=== PATIENT | female | born 1980 | race Caucasian/White ===

== ENCOUNTER 2023-03-25 17:21 | Observation (INO) | payer OTHER, SELFPAY ==
[2023-03-25 17:27] VITALS: BP 132/89; PULSE 120; RESP 20; TEMP 39.5; O2SAT 97; BMI 39.1
--- NOTE | 2023-03-25 17:55 | ED.ANIMALBI1 ---
HPI - Animal Bite General Chief Complaint: Animal Bite Stated Complaint: UPPER EXTREMITY PAIN Time Seen by Provider: 03/25/23 17:47 Source: patient Mode of arrival: walk-in Limitations: no limitations History of Present Illness HPI narrative: Patient is a 42-year-old female presents to the Emergency Room with concerns of infection to her right forearm. Patient states yesterday she attempted to pick pulling machine tender her normally indoor cat that was outside to bring it back in when it started to scratch her. Patient initially denied being bitten however there is multiple abrasions consistent with scratches to the distal forearm and more. Puncture wounds to the dorsal proximal forearm concerning for Bite. Patient has notable erythema surrounding these areas that is tender to palpation. No active drainage. Patient was seen by her family doctor this morning prescribed Augmentin and took her 1st dose earlier today, but her symptoms persist. Patient also developing fever. She has not taken any medication prior to arrival other than her antibiotic Patient states her tetanus is up-to-date, patient also notes that her cat is fully vaccinated, and can be observed. Animal: Reports cat Mechanism: Reports bite and scratch Location: Reports other (Right forearm) Pain description: Reports dull Severity: mild Related Data Patient tetanus UTD: Yes Home Medications Medication Instructions Recorded Confirmed albuterol sulfate 90 mcg/actuation 2 inh inhalation .FOUR TIMES A DAY 03/25/23 03/26/23 aerosol inhaler (Ventolin HFA) PRN shortness of breath or wheezing amoxicillin 875 mg-potassium 1 tab PO Q12H 03/25/23 03/26/23 clavulanate 125 mg tablet fluticasone propionate 50 2 spray intranasal .once daily PRN 03/25/23 03/26/23 mcg/actuation nasal allergy symptoms spray,suspension norethindrone acetate 5 mg tablet 10 mg PO DAILY 03/25/23 03/26/23 rimegepant 75 mg disintegrating 75 mg PO .as needed 03/25/23 03/26/23 tablet (Nurtec ODT) simvastatin 20 mg tablet 20 mg PO .AT BEDTIME 03/25/23 03/26/23 venlafaxine 37.5 mg 37.5 mg PO DAILY 03/25/23 03/26/23 capsule,extended release 24 hr Allergies Allergy/AdvReac Type Severity Reaction Status Date / Time No Known Drug Allergies Allergy Verified 06/05/23 22:55 Review of Systems ROS Constitutional Reports: fever and chills Eyes Denies: change in vision Ears, nose, mouth, and throat Denies: throat pain or neck pain Cardiovascular Denies: chest pain or palpitations Respiratory Denies: shortness of breath or cough Gastrointestinal Denies: abdominal pain, nausea or vomiting Genitourinary Denies: painful urination or urinary frequency Musculoskeletal Reports: other (General myalgias with fever); Denies: back pain Neurological Denies: headache PFSH PFSH Medical History (Updated 03/25/23 @ 23:30 by Ирина Fenton) Surgical History (Updated 03/25/23 @ 23:30 by Ирина Fenton) Family History (Updated 03/25/23 @ 23:36 by рИина Fenton) Grandfather Family history of cancer Grandmother Family history of cancer Mother Family history of diabetes mellitus Social History (Updated 03/25/23 @ 23:40 by Ирина Fenton) Smoking status: Former smoker Non-prescribed substance use: cannabis (any form) 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 Known occupational exposures/hazards: Yes Highest level of school completed/degree received: Associate degree: occupational, technical, vocational program Do you want help with school or training: No Are you now , , , , never or living with a partner: In a typical week, how many times do you talk on the telephone with family, friends, or neighbors: 3 or more times per week How often do you get together with friends or relatives: 3 or more times per week How often do you attend lutheran or muslim services: never Do you belong to any clubs or organizations such as lutheran groups unions, fraternal or athletic groups, or school groups: no Total score: 1 Score interpretation: A score of less than or equal to 1 indicates the most socially isolated. Little interest or pleasure in doing things: not at all Feeling down, depressed, or hopeless: not at all Feel stressed/tense/nervous/anxious/difficulty sleeping: not at all Life stressors: unknown source of stress Due to disability, difficulty making decisions: No Do you think of yourself as: decline to answer Gender Identity: female Exam Narrative Exam Narrative: Nurses notes and vital signs reviewed and patient is not hypoxic. General: The patient appears well and in no apparent distress. Patient is resting comfortably on cart. Skin: Warm, dry, no pallor noted. Head: Normocephalic, atraumatic Neck: Supple, trachea mid-line, no tenderness, no lymphadenopathy Eye: Pupils are equal, round and reactive to light, EOMI, conjunctiva injection patient admits to crying earlier in the day regarding the whole ordeal. Ears, Nose, Mouth, and Throat: TM are clear, normal light reflex, oral mucosa is moist, no posterior oropharynx erythema or hypertrophy, uvula is mid-line Cardiovascular: Regular Rate and Rhythm Respiratory: Patient is in no distress, no accessory muscle use, lungs are clear to auscultation, no wheezing, rales or rhonchi. Chest Wall: no tenderness Back: non-tender, no CVA tenderness Musculoskeletal: Painless passive range of motion of the wrist elbow and shoulder. No palpable lymphadenopathy in the right axilla, notable puncture wounds to the dorsal forearm and scratches to the dorsal fall or forearm all with surrounding erythema and slight streaking. No active drainage or discharge. GI: Normal bowel sounds, no tenderness to palpation, no masses appreciated. No rebound, guarding, or rigidity noted. Abdomen nonsurgical Neurological: A&O x4 Psychiatric: Cooperative Constitutional Vital Signs - 24 hr 03/25/23 17:27 03/25/23 19:14 03/25/23 19:39 Temperature 103.1 F H 101.2 F H Pulse Rate 111 H Pulse Rate [Monitor] 120 H Respiratory Rate 20 16 Blood Pressure 112/71 Blood Pressure [Left Arm] 132/89 H Pulse Oximetry 97 96 Oxygen Delivery Method Room Air Course Vital Signs Vital signs: Vital Signs Temperature 103.1 F H 03/25/23 17:27 Pulse Rate 120 H 03/25/23 17:27 Respiratory Rate 20 03/25/23 17:27 Blood Pressure 132/89 H 03/25/23 17:27 Pulse Oximetry 97 03/25/23 17:27 Oxygen Delivery Method Room Air 03/25/23 17:27 Temperature 98.9 F 03/26/23 20:53 Pulse Rate 82 03/26/23 14:00 Respiratory Rate 18 03/26/23 20:53 Blood Pressure 121/84 H 03/26/23 14:00 Pulse Oximetry 95 03/26/23 14:00 Oxygen Delivery Method Room Air 03/26/23 20:53 Two-view right forearm with no evidence of foreign body- preliminary MDM - Animal Bite MDM Narrative Medical decision making narrative: Patient's tetanus is up-to-date, we discussed her multiple suspected cat Bites to the right forearm. Patient prescribed outpatient oral antibiotics but. Presents febrile. Patient be given Tylenol, Motrin IV fluid bolus and IV Unasyn 3g We discussed the possibility observation given the extent of her wounds for further evaluation and IV antibiotic management Attending physician note - I saw and examined the patient after discussing the PA with the midlevel. The patient needs to be admitted for IV antibiotics. I spoke with the hospitalist and Dr Kovacs agreed to admit the patient on behalf of the patient's PCP, Ivy Ware. - Carmelita, DO Differential Diagnosis Differential diagnosis: Likely cat bite Lab Data Lab results narrative: At the request of: PEDRO LUIS WARNER Procedure: XR forearm RT 2V EXAM: XR forearm RT 2V HISTORY: right forearm cat bite/ scratch COMPARISON: None. TECHNIQUE: 2 views of the right forearm FINDINGS: No acute fracture of the right forearm is seen. Mild soft tissue swelling is seen about the ventral aspect of the proximal forearm. No significant soft tissue gas is seen. No radiopaque density seen within the visualized soft tissues. IMPRESSION: No acute fracture. Electronically authenticated by: CESAR LOPEZ Date: 03/25/2023 19:27 Labs: Lab Results 03/25/23 03/25/23 03/25/23 Range/Units 18:15 18:24 19:30 WBC 14.0 H (4.0-11.0) 10^3/uL RBC 4.54 (4.20-5.40) 10^6/uL Hgb 13.8 (12.0-16.0) g/dL Hct 41.4 (36.0-48.0) % MCV 91.2 (81.0-99.0) fL MCH 30.4 (26.7-34.0) pg MCHC 33.3 (29.9-35.2) g/dL RDW 13.2 (11.0-15.0) % Plt Count 363 (150-450) 10^3/uL MPV 9.2 L (9.5-13.5) fL Neut % (Auto) 80.0 H (43.0-75.0) % Lymph % (Auto) 11.4 L (20.5-60.0) % [place] % (Auto) 7.1 (1.7-12.0) % Eos % (Auto) 0.8 L (0.9-7.0) % Baso % (Auto) 0.3 (0.2-2.0) % Neut # (Auto) 11.2 H (1.4-6.5) 10^3/uL Lymph # (Auto) 1.6 (1.2-3.8) 10^3/uL [place] # (Auto) 1.0 H (0.3-0.8) 10^3/uL Eos # (Auto) 0.1 (0.0-0.7) 10^3/uL Baso # (Auto) 0.0 (0.0-0.1) 10^3/uL Abs Immat Gran (auto) 0.05 H (0.00-0.03) 10^3/uL Imm/Tot Granulo (auto) 0.4 (0.0-0.5) % Sodium 137 (136-145) mmol/L Potassium 4.0 (3.5-5.1) mmol/L Chloride 101 (98-107) mmol/L Carbon Dioxide 25.6 (21.0-32.0) mmol/L Anion Gap 14.4 BUN 6.0 L (7.0-18.0) mg/dL Creatinine 0.77 (0.55-1.02) mg/dL Est GFR ( Amer) >60 (>=60) Est GFR (Non-Af Amer) >60 (>=60) BUN/Creatinine Ratio 7.8 Glucose 94 (74-106) mg/dL Lactate 1.2 (0.4-2.0) mmol/L Calcium 9.0 (8.5-10.1) mg/dL Total Bilirubin 0.5 (0.2-1.0) mg/dL AST 33 (15-37) U/L ALT 35 (14-59) U/L Alkaline Phosphatase 45 L (46-116) U/L Total Protein 7.8 (6.4-8.2) g/dL Albumin 3.9 (3.4-5.0) g/dL Globulin 3.9 g/dL Albumin/Globulin Ratio 1.0 Urine Color Lt. yellow (YELLOW) Urine Clarity Clear (CLEAR) Urine pH 7.5 (5.0-9.0) Ur Specific [place] 1.010 (1.005-1.025) Urine Protein Negative (NEG/TRACE) mg/dL Urine Glucose (UA) Negative (NEGATIVE) mg/dL Urine Ketones Negative (NEGATIVE) mg/dL Urine Occult Blood Moderate A (NEGATIVE) Urine Nitrite Negative (NEGATIVE) Urine Bilirubin Negative (NEGATIVE) Urine Urobilinogen 0.2 (0.2-1.0) EU/dL Ur Leukocyte Esterase Negative (NEGATIVE) Urine RBC 0-2 (0-2) #/HPF Urine WBC None seen (NONE SEEN) #/HPF Ur Squamous Epith Cells None seen (NONE/RARE) #/LPF Urine Crystals None seen (None Seen) #/HPF Urine Bacteria None seen (NONE SEEN) #/HPF Urine Casts None seen (NONE SEEN) #/LPF Urine Mucus None seen (NONE SEEN) Urine HCG, Qual Negative (NEGATIVE) Discharge Plan Discharge Chief Complaint: Animal Bite Clinical Impression: Cat bite, Cellulitis of forearm, right Patient Disposition: Admitted as Observation Time of Disposition Decision: 19:39 Condition: Good Discharge Date/Time: 03/25/23 22:12
[2023-03-25] MEDS: 0.9 % SODIUM CHLORIDE 1,000 ML 999 ML IV (18:23)
[2023-03-25] MEDS: IBUPROFEN 600 MG TABLET PO (18:23)
[2023-03-25] MEDS: ACETAMINOPHEN 500 MG TABLET 1000 MG PO (18:23)
[2023-03-25] MEDS: AMPICILLIN SODIUM/SULBACTAM NA 3 GM in 0.9 % SODIUM CHLORIDE 100 ML IV (18:25)
--- NOTE | 2023-03-25 18:28 | XR_ITS ---
The [address] [address] Patient Name: SABRINA MARIN MRN: [id number] date: 1980 Sex: F Assigned Patient Location: ER Current Patient Location: ER Accession/Order Number: [id number] Exam Date: 03/25/2023 18:30 Report Date: 03/25/2023 19:27 At the request of: PEDRO LUIS WARNER Procedure: XR forearm RT 2V EXAM: XR forearm RT 2V HISTORY: right forearm cat bite/ scratch COMPARISON: None. TECHNIQUE: 2 views of the right forearm FINDINGS: No acute fracture of the right forearm is seen. Mild soft tissue swelling is seen about the ventral aspect of the proximal forearm. No significant soft tissue gas is seen. No radiopaque density seen within the visualized soft tissues. IMPRESSION: No acute fracture. Electronically authenticated by: CESAR LOPEZ Date: 03/25/2023 19:27
[2023-03-25 18:34] LABS: Basophils Percent Auto 0.3 % (0.2-2.0); Eosinophils Absolute Auto 0.1 10^3/uL (0.0-0.7); Eosinophils Percent Auto 0.8 % (0.9-7.0); Hematocrit 41.4 % (36.0-48.0); Hemoglobin 13.8 g/dL (12.0-16.0); Immature Granulocytes Abs Auto 0.05 10^3/uL (0.00-0.03); Immature Granulocytes Pct Auto 0.4 % (0.0-0.5); Lymphocytes Absolute Auto 1.6 10^3/uL (1.2-3.8); Lymphocytes Percent Auto 11.4 % (20.5-60.0); Mean Corpuscular HGB Conc 33.3 g/dL (29.9-35.2); Mean Corpuscular Hemoglobin 30.4 pg (26.7-34.0); Mean Corpuscular Volume 91.2 fL (81.0-99.0); Mean Platelet Volume 9.2 fL (9.5-13.5); Monocytes Percent Auto 7.1 % (1.7-12.0); Neutrophils Absolute Auto 11.2 10^3/uL (1.4-6.5); Platelet Count 363 10^3/uL (150-450); Red Blood Count 4.54 10^6/uL (4.20-5.40); Red Cell Distribution Width 13.2 % (11.0-15.0)
[2023-03-25 18:47] LABS: Alanine Aminotransferase 35 U/L (14-59); Albumin Level 3.9 g/dL (3.4-5.0); Alkaline Phosphatase 45 U/L (46-116); Anion Gap 14.4; Aspartate Amino Transferase 33 U/L (15-37); BUN Creatinine Ratio 7.8; Bilirubin Total 0.5 mg/dL (0.2-1.0); Carbon Dioxide 25.6 mmol/L (21.0-32.0); Chloride 101 mmol/L (98-107); Estimated GFR (African America >60 (>=60); Estimated GFR (Non-African Ame >60 (>=60); Globulin 3.9 g/dL; Glucose 94 mg/dL (74-106); Sodium 137 mmol/L (136-145); Total Protein 7.8 g/dL (6.4-8.2)
[2023-03-25 18:49] LABS: Lactate/Lactic Acid 1.2 mmol/L (0.4-2.0)
[2023-03-25 18:51] LABS: HCG Qualitative NEGATIVE (NEGATIVE)
[2023-03-25 19:14] VITALS: TEMP 38.4
--- NOTE | 2023-03-25 19:18 | PC.NURSE ---
Reddened area marked with skin marker at this time
[2023-03-25 19:36] LABS: Bilirubin Urine NEGATIVE (NEGATIVE); Blood Urine MODERATE (NEGATIVE); Clarity Urine CLEAR (CLEAR); Color Urine LT. YELLOW (YELLOW); Glucose Urine UA NEGATIVE (NEGATIVE); Ketones Urine NEGATIVE (NEGATIVE); Leukocyte Esterase Urine NEGATIVE (NEGATIVE); Nitrite Urine NEGATIVE (NEGATIVE); Protein Urine NEGATIVE (NEG/TRACE); Urobilinogen Urine 0.2 EU/dL (0.2-1.0); pH Urine 7.5 (5.0-9.0)
[2023-03-25 19:39] VITALS: BP 112/71; PULSE 111; RESP 16; O2SAT 96
[2023-03-25 19:39] LABS: Bacteria Urine NONE SEEN #/HPF (NONE SEEN); Cast Seen? NONE SEEN #/LPF (NONE SEEN); Crystals Seen? None Seen #/HPF (None Seen); Mucus Urine NONE SEEN (NONE SEEN); RBC Urine 0-2 #/HPF (0-2); Squamous Epithelial Cell Urine NONE SEEN #/LPF (NONE/RARE); WBC Urine NONE SEEN #/HPF (NONE SEEN)
[2023-03-25 22:12] VITALS: TEMP 36.8
[2023-03-25 22:14] VITALS: TEMP 36.8
[2023-03-25 22:20] VITALS: BP 113/80; PULSE 102; RESP 18; TEMP 36.7; O2SAT 95; BMI 40.0
--- NOTE | 2023-03-26 01:07 | W.PM.TELEPN ---
Progress Note: Subjective Subjective Interval history: Patient admitted for cat scratch to right (dominant) wrist as well as scratches with punctures to right forearm. onset 03/24. seen by PCP DAIANA MCALLISTER morning of the and started single dose of augmentin however in the evening became febrile prompting ED visit. Found to have fever with leukocytosis thus admitted for IV ABX. At my interview she has mild headache but otherwise feeling better following ED tx that included fever control plus abx. Exam Constitutional Vital Signs - 24 hr 03/25/23 17:27 03/25/23 19:14 03/25/23 19:39 Temperature 103.1 F H 101.2 F H Pulse Rate 111 H Pulse Rate [Monitor] 120 H Respiratory Rate 20 16 Blood Pressure 112/71 Blood Pressure [Left Arm] 132/89 H Pulse Oximetry 97 96 Oxygen Delivery Method Room Air 03/25/23 22:12 03/25/23 22:14 03/25/23 22:20 Temperature 98.3 F 98.3 F 98.1 F Pulse Rate 102 H Pulse Rate [Monitor] Respiratory Rate 18 Blood Pressure Blood Pressure [Left Arm] 113/80 H Pulse Oximetry 95 Oxygen Delivery Method Room Air 03/25/23 22:20 Temperature Pulse Rate Pulse Rate [Monitor] Respiratory Rate Blood Pressure Blood Pressure [Left Arm] Pulse Oximetry 95 Oxygen Delivery Method Room Air Common normals: no apparent distress General appearance: cooperative and comfortable Orientation/consciousness: Yes awake, Yes oriented to person, Yes oriented to place and Yes oriented to time HENNC Common normals: normocephalic and head/scalp atraumatic Eye Common normals: conjunctivae normal Chest Common normals: inspection of chest normal Respiratory Common normals: normal respiratory effort Cardio Common normals: regular rhythm Rate: tachycardic Extremity Other: superficial scratches to volar right wrist. Proximal forarm on dorsolateral aspect with punctures and scrates with lines of demarcation drawn around erythema that extends to the elbow joint. distal PMS intact. cap refull RUE < 2 seconds. Neuro Common normals: oriented x3 Progress Note: Objective Labs Labs: Short CBC 03/25/23 Range/Units 18:15 WBC 14.0 H (4.0-11.0) 10^3/uL Hgb 13.8 (12.0-16.0) g/dL Hct 41.4 (36.0-48.0) % Plt Count 363 (150-450) 10^3/uL BMP 03/25/23 18:24 Sodium 137 Potassium 4.0 Chloride 101 Carbon Dioxide 25.6 BUN 6.0 L Creatinine 0.77 Glucose 94 Calcium 9.0 Liver Function 03/25/23 Range/Units 18:24 Total Bilirubin 0.5 (0.2-1.0) mg/dL AST 33 (15-37) U/L ALT 35 (14-59) U/L Alkaline Phosphatase 45 L (46-116) U/L Albumin 3.9 (3.4-5.0) g/dL Urine 03/25/23 Range/Units 19:30 Urine Color Lt. yellow (YELLOW) Urine Clarity Clear (CLEAR) Urine pH 7.5 (5.0-9.0) Ur Specific [place] 1.010 (1.005-1.025) Urine Protein Negative (NEG/TRACE) mg/dL Urine Glucose (UA) Negative (NEGATIVE) mg/dL Pulse Oximetry Attestation: I have reviewed the pertinent pulse oximetry results. Progress Note: A&P Assessment and Plan (1) Cellulitis of forearm, right: (2) Cat bite: Plan 1. Cat bite and scratch: Continue q 6 hr abx with Unasyn. Antipyretics as needed. Follow wounds for improvement however with punctures will follow and if worsen after 24 hours abx consider surgical eval. sooner if clinically indicated. Tetanus was updated and this is her cat. Do not suspect sepsis and is tolerating po/diet. 2.HLD. Pharm to restart home meds. 3. DVT prophylaxis. MEchanical compression device Fall Risk Details Pitts Fall Scale Risk Level: Moderate Fall Risk Current Medications: Current Medications Acetaminophen (Acetaminophen 325 Mg Tablet) 650 mg PO Q4H PRN PRN Reason: Pain Docusate Sodium (Docusate Sodium 100 Mg Capsule) 100 mg PO BID PRN PRN Reason: Constipation Ampicillin Sodium/Sulbactam (Sodium 3 gm/ Sodium Chloride) 100 mls @ 200 mls/hr IV Q6H LANCE Ibuprofen (Ibuprofen 400 Mg Tablet) 400 mg PO Q8H PRN PRN Reason: Mild Pain Oxycodone/Acetaminophen (Oxycodone Hcl/Acetaminophen 5-325 Mg Tablet) 1 each PO Q6H PRN PRN Reason: Moderate Pain Polyethylene Glycol (Polyethylene Glycol 3350 17 Gm Powder Packet) 17 gm PO QD PRN PRN Reason: Constipation Senna (Sennosides 8.6 Mg Tablet) 8.6 mg PO QD PRN PRN Reason: Constipation Time Spent With Patient Time: Total time spent is greater than 50% in coordination of care (as documented) at patient's floor/unit and/or counseling patient: Time with patient: less than 15 minutes Telemedicine Attestation Telemedicine Attestation I conducted this encounter from [[facility]] via secure live, [id number] video conference with the patient, CHARGE TEST-CHARGES located at [facility] with [Tanika Fenton]. Prior to the interview, the risks and benefits of telemedicine were discussed with the patient and verbal consent was obtained.
[2023-03-26] MEDS: AMPICILLIN SODIUM/SULBACTAM NA 3 GM in 0.9 % SODIUM CHLORIDE 100 ML IV ×4 (01:19→20:18)
[2023-03-26 05:22] LABS: Basophils Percent Auto 0.2 % (0.2-2.0); Eosinophils Absolute Auto 0.3 10^3/uL (0.0-0.7); Eosinophils Percent Auto 2.2 % (0.9-7.0); Hemoglobin 12.3 g/dL (12.0-16.0); Immature Granulocytes Abs Auto 0.05 10^3/uL (0.00-0.03); Immature Granulocytes Pct Auto 0.4 % (0.0-0.5); Lymphocytes Absolute Auto 1.8 10^3/uL (1.2-3.8); Lymphocytes Percent Auto 15.7 % (20.5-60.0); Mean Corpuscular HGB Conc 32.4 g/dL (29.9-35.2); Mean Corpuscular Volume 92.7 fL (81.0-99.0); Mean Platelet Volume 9.3 fL (9.5-13.5); Monocytes Absolute Auto 1.1 10^3/uL (0.3-0.8); Neutrophils Absolute Auto 8.5 10^3/uL (1.4-6.5); Neutrophils Percent Auto 72.5 % (43.0-75.0); Platelet Count 290 10^3/uL (150-450); Red Cell Distribution Width 13.3 % (11.0-15.0); White Blood Count 11.7 10^3/uL (4.0-11.0)
[2023-03-26 05:37] LABS: Alanine Aminotransferase 29 U/L (14-59); Albumin Globulin Ratio 0.9; Albumin Level 3.1 g/dL (3.4-5.0); Alkaline Phosphatase 39 U/L (46-116); Aspartate Amino Transferase 20 U/L (15-37); BUN Creatinine Ratio 9.2; Bilirubin Total 0.5 mg/dL (0.2-1.0); Calcium 8.7 mg/dL (8.5-10.1); Carbon Dioxide 23.7 mmol/L (21.0-32.0); Chloride 107 mmol/L (98-107); Estimated GFR (African America >60 (>=60); Estimated GFR (Non-African Ame >60 (>=60); Globulin 3.5 g/dL; Glucose 116 mg/dL (74-106); Potassium 3.7 mmol/L (3.5-5.1); Sodium 140 mmol/L (136-145); Total Protein 6.6 g/dL (6.4-8.2)
[2023-03-26 06:00] VITALS: BP 106/73; PULSE 84; RESP 18; TEMP 37.2; O2SAT 93
[2023-03-26 07:12] LABS: Erythrocyte Sedimentation Rate 34 mm/hr (<=20)
[2023-03-26 07:14] LABS: Lactate/Lactic Acid 0.7 mmol/L (0.4-2.0)
--- NOTE | 2023-03-26 09:16 | PM.HP ---
H&P: HPI History of Present Illness Chief complaint: UPPER EXTREMITY PAIN Narrative: Scratch 2 days ago. Saw her PCP. Started on Augmentin. Over the course the next day the swelling and erythema became worse and the pain increased. Presented to the emergency room. Found to have significant cat scratch cellulitis. X-ray shows no evidence of bony involvement. 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 Known occupational exposures/hazards: Yes Highest level of school completed/degree received: Associate degree: occupational, technical, vocational program Do you want help with school or training: No Are you now , , , , never or living with a partner: In a typical week, how many times do you talk on the telephone with family, friends, or neighbors: 3 or more times per week How often do you get together with friends or relatives: 3 or more times per week How often do you attend adventism or sikhism services: never Do you belong to any clubs or organizations such as adventism groups unions, fraternal or athletic groups, or school groups: no Total score: 1 Score interpretation: A score of less than or equal to 1 indicates the most socially isolated. Little interest or pleasure in doing things: not at all Feeling down, depressed, or hopeless: not at all Feel stressed/tense/nervous/anxious/difficulty sleeping: not at all Life stressors: unknown source of stress Due to disability, difficulty making decisions: No Do you think of yourself as: decline to answer Gender Identity: female Meds Home Medications and Allergies Home Medications Medication Instructions Recorded Confirmed Type albuterol sulfate 90 mcg/actuation 2 inh inhalation .FOUR TIMES A DAY 03/25/23 03/26/23 History aerosol inhaler (Ventolin HFA) PRN shortness of breath or wheezing amoxicillin 875 mg-potassium 1 tab PO Q12H 03/25/23 03/26/23 History clavulanate 125 mg tablet fluticasone propionate 50 2 spray intranasal .once daily PRN 03/25/23 03/26/23 History mcg/actuation nasal allergy symptoms spray,suspension norethindrone acetate 5 mg tablet 10 mg PO DAILY 03/25/23 03/26/23 History rimegepant 75 mg disintegrating 75 mg PO .as needed 03/25/23 03/26/23 History tablet (Nurtec ODT) simvastatin 20 mg tablet 20 mg PO .AT BEDTIME 03/25/23 03/26/23 History venlafaxine 37.5 mg 37.5 mg PO DAILY 03/25/23 03/26/23 History capsule,extended release 24 hr Allergies Allergy/AdvReac Type Severity Reaction Status Date / Time No Known Drug Allergies Allergy Verified 03/25/23 22:55 Exam Constitutional Vital Signs - 24 hr 03/25/23 17:27 03/25/23 19:14 03/25/23 19:39 Temperature 103.1 F H 101.2 F H Pulse Rate 111 H Pulse Rate [Monitor] 120 H Respiratory Rate 20 16 Blood Pressure 112/71 Blood Pressure [Left Arm] 132/89 H Pulse Oximetry 97 96 Oxygen Delivery Method Room Air 03/25/23 22:12 03/25/23 22:14 03/25/23 22:20 Temperature 98.3 F 98.3 F 98.1 F Pulse Rate 102 H Pulse Rate [Monitor] Respiratory Rate 18 Blood Pressure Blood Pressure [Left Arm] 113/80 H Pulse Oximetry 95 Oxygen Delivery Method Room Air 03/25/23 22:20 03/26/23 06:00 Temperature 98.9 F Pulse Rate 84 Pulse Rate [Monitor] Respiratory Rate 18 Blood Pressure Blood Pressure [Left Arm] 106/73 Pulse Oximetry 95 93 L Oxygen Delivery Method Room Air [facility] Common normals: moist oral mucous membranes Respiratory Common normals: normal respiratory effort, no retractions and clear to auscultation bilaterally Cardio Common normals: no JVD, regular rate and regular rhythm GI Common normals: Normal to inspection, nondistended, normoactive bowel sounds present Extremity Common normals: abnormal to inspection (Right arm near the elbow with area of erythema. Just at the edge ) Results Labs Labs: Short CBC 03/25/23 03/26/23 Range/Units 18:15 04:51 WBC 14.0 H 11.7 H (4.0-11.0) 10^3/uL Hgb 13.8 12.3 (12.0-16.0) g/dL Hct 41.4 38.0 (36.0-48.0) % Plt Count 363 290 (150-450) 10^3/uL BMP 03/25/23 03/26/23 18:24 04:51 Sodium 137 140 Potassium 4.0 3.7 Chloride 101 107 Carbon Dioxide 25.6 23.7 BUN 6.0 L 7.0 Creatinine 0.77 0.76 Glucose 94 116 H Calcium 9.0 8.7 Liver Function 03/25/23 03/26/23 Range/Units 18:24 04:51 Total Bilirubin 0.5 0.5 (0.2-1.0) mg/dL AST 33 20 (15-37) U/L ALT 35 29 (14-59) U/L Alkaline Phosphatase 45 L 39 L (46-116) U/L Albumin 3.9 3.1 L (3.4-5.0) g/dL Urine 03/25/23 Range/Units 19:30 Urine Color Lt. yellow (YELLOW) Urine Clarity Clear (CLEAR) Urine pH 7.5 (5.0-9.0) Ur Specific [place] 1.010 (1.005-1.025) Urine Protein Negative (NEG/TRACE) mg/dL Urine Glucose (UA) Negative (NEGATIVE) mg/dL Assessment and Plan Assessment and Plan (1) Cellulitis of forearm, right: (2) Cat bite: Plan Fever, sinus tachycardia, leukocytosis secondary to cat scratch cellulitis. Continue with Unasyn. Patient does state he feels somewhat better than previous admission time. If much improved later on today she can be discharged home in improving condition. Medications see list. Follow-up with PCP within the next few days. If not feeling better she should stay for additional IV therapy as she has failed oral therapy at this point.
[2023-03-26] MEDS: IBUPROFEN 400 MG TABLET PO ×2 (09:52→20:21)
[2023-03-26 10:20] VITALS: RESP 18
--- NOTE | 2023-03-26 10:42 | CM.NOTE ---
Rounds made with Dr. Amezcua. Dr. Amezcua explained the antibiotic therapy and the goal is to decrease the redness and size of the area. Verbalizes understanding. Potential discharge later today depending on if any improvement is noted otherwise the plan for discharge will be tomorrow.
[2023-03-26 10:49] VITALS: BP 106/66; PULSE 90; RESP 16; TEMP 37.3; O2SAT 96
[2023-03-26 14:00] VITALS: BP 121/84; PULSE 82; RESP 16; TEMP 37; O2SAT 95
[2023-03-26 20:53] VITALS: RESP 18; TEMP 37.2
--- NOTE | 2023-03-27 16:20 | CM.DCFOLLOWU ---
Person spoke with:patient How are you feeling? well How is your pain? N/A Did you understand your discharge instructions? Yes Do you have any questions about your discharge instructions? No Were you given any prescriptions at discharge? NO Were you able to get your prescriptions filled? N/A Do you understand how to take your medications as ordered? Yes Do you have any questions about your follow up appointment and do you plan to keep your follow up appointment? Called and scheduled her own follow up appointment Is there anything else that you would like to discuss? NO Questions/Comments/Concerns/Other: Expressed that the ER and the hospital was dirty.
== END 2023-03-26 21:33 | disposition home or self-care (01) ==
LOC: ER 20:19 → MS 22:17
PROVIDERS: Personal Emergency Response Attendant; Admitting Provider Family Medicine; Emergency Provider Emergency Medicine; PCP Nurse Practitioner Family; Visit Provider Family Medicine
DX: L03.113 Cellulitis of right upper limb (principal); S51.831A Puncture wound without foreign body of right forearm, initial encounter; Z87.891 Personal history of nicotine dependence; W55.01XA Bitten by cat, initial encounter; R50.9 Fever, unspecified; S60.811A Abrasion of right wrist, initial encounter; E78.5 Hyperlipidemia, unspecified
CPT/HCPCS: 36415; 73090; 80053; 81001; 83605; 84703; 85025; 85652; 87040; 96374; 96376; 99285; G0378

== ENCOUNTER 2023-04-18 13:24 | Outpatient (OUT) | payer OTHER, SELFPAY ==
--- NOTE | 2023-04-18 13:28 | MM_ITS ---
Patient: SABRINA MARIN Exam Date: 04/18/2023 : 1980 Gender:F Ordering : VIVEK MCALLISTER [facility] Admission #: [id number] Family : Order #: [id number] CLICK HERE TO VIEW EXAM RADIOLOGY REPORT PROCEDURE: MM TOMOSYNTHESIS SCREENING BI COMPARISON: MG MAMM SCREEN 3D MARY CAD, 06/21/2021. MG MAMM DX 3D RT CAD, 02/05/2022. INDICATIONS: Screening mammogram Z12.31 Calculator Name NCI Breast Cancer Risk Assessment Tool 5 Year Breast Cancer Risk Not Reported. Lifetime Breast Cancer Risk Not Reported. Personal Breast Cancer No Personal Ovarian Cancer No Treatments None Family Cancers None LOCATION: The [facility] BREAST COMPOSITION: Heterogeneously dense,which may obscure small masses. FINDINGS: DIAGNOSTIC CATEGORY 1--NEGATIVE. NO CHANGE FROM COMPARISON ASSESSMENT. Scattered benign-appearing calcifications are present. Scattered benign-appearing lymph nodes are present. RIGHT BREAST: No significant suspicious finding. LEFT BREAST: No significant suspicious finding. RECOMMENDATIONS: ROUTINE MAMMOGRAM AND CLINICAL EVALUATION IN 12 MONTHS. PLEASE NOTE: A NORMAL MAMMOGRAM DOES NOT EXCLUDE THE POSSIBILITY OF BREAST CANCER. A CLINICALLY SUSPICIOUS PALPABLE LUMP SHOULD BE BIOPSIED. Dictated by: David Bonds MD on 04/18/2023 at 14:36 Approved by: David Bonds MD on 04/18/2023 at 14:38
== END 2023-04-18 13:25 | disposition home or self-care (01) ==
LOC: MAMMO 13:25
PROVIDERS: PCP Nurse Practitioner Family; Visit Provider Nurse Practitioner Family
DX: Z12.31 Encounter for screening mammogram for malignant neoplasm of breast (principal)
CPT/HCPCS: 77063; 77067

== ENCOUNTER 2023-05-25 06:30 | Outpatient (OUT) | payer BC, OTHER, SELFPAY ==
[2023-05-25 09:23] LABS: Basophils Absolute Auto 0.1 10^3/uL (0.0-0.1); Basophils Percent Auto 0.7 % (0.2-2.0); Eosinophils Absolute Auto 0.2 10^3/uL (0.0-0.7); Eosinophils Percent Auto 2.7 % (0.9-7.0); Hematocrit 44.3 % (36.0-48.0); Hemoglobin 14.5 g/dL (12.0-16.0); Immature Granulocytes Abs Auto 0.02 10^3/uL (0.00-0.03); Immature Granulocytes Pct Auto 0.2 % (0.0-0.5); Lymphocytes Absolute Auto 2.4 10^3/uL (1.2-3.8); Lymphocytes Percent Auto 29.1 % (20.5-60.0); Mean Corpuscular HGB Conc 32.7 g/dL (29.9-35.2); Mean Corpuscular Volume 91.5 fL (81.0-99.0); Monocytes Absolute Auto 0.5 10^3/uL (0.3-0.8); Monocytes Percent Auto 6.2 % (1.7-12.0); Neutrophils Absolute Auto 5.1 10^3/uL (1.4-6.5); Neutrophils Percent Auto 61.1 % (43.0-75.0); Platelet Count 346 10^3/uL (150-450); Red Blood Count 4.84 10^6/uL (4.20-5.40); White Blood Count 8.3 10^3/uL (4.0-11.0)
[2023-05-25 09:49] LABS: Free Thyroxine Index 2.31 (1.30-4.50)
[2023-05-25 09:50] LABS: Estimated Average Glucose 103 mg/dL; Glycohemoglobin A1C 5.2 % (4.5-6.2)
[2023-05-25 10:41] LABS: Alanine Aminotransferase 32 U/L (14-59); Albumin Globulin Ratio 1.1; Alkaline Phosphatase 42 U/L (46-116); Anion Gap 10.5; Aspartate Amino Transferase 13 U/L (15-37); BUN Creatinine Ratio 15.1; Bilirubin Total 0.4 mg/dL (0.2-1.0); Carbon Dioxide 24.5 mmol/L (21.0-32.0); Chloride 104 mmol/L (98-107); Cholesterol 222 mg/dL (<=200); Estimated GFR (African America >60 (>=60); Estimated GFR (Non-African Ame >60 (>=60); Globulin 3.7 g/dL; Glucose 95 mg/dL (74-106); HDL Cholesterol 37 mg/dL (40-60); Sodium 135 mmol/L (136-145); Thyroid Stimulating Hormone 1.531 uIU/mL (0.358-3.740); Total Protein 7.7 g/dL (6.4-8.2); Triglycerides 96 mg/dL (<=150); VLDL CHOLESTEROL 19.2 mg/dL
[2023-05-27 13:07] LABS: Insulin 16.1 uIU/mL (2.6-24.9)
== END 2023-06-01 07:54 | disposition home or self-care (01) ==
LOC: LAB 06-03 13:56
PROVIDERS: PCP Nurse Practitioner Family; Visit Provider Nurse Practitioner Family
DX: E78.5 Hyperlipidemia, unspecified (principal); R73.09 Other abnormal glucose; D64.9 Anemia, unspecified
CPT/HCPCS: 36415; 80053; 80061; 83036; 83525; 83540; 84436; 84443; 84479; 85025

== ENCOUNTER 2023-06-01 07:56 | Outpatient (OUT) | payer BC, OTHER, SELFPAY ==
[2023-06-01 09:49] LABS: Bilirubin Urine NEGATIVE (NEGATIVE); Blood Urine TRACE-I (NEGATIVE); Clarity Urine CLEAR (CLEAR); Color Urine LT. YELLOW (YELLOW); Glucose Urine UA NEGATIVE (NEGATIVE); Ketones Urine NEGATIVE (NEGATIVE); Leukocyte Esterase Urine NEGATIVE (NEGATIVE); Nitrite Urine NEGATIVE (NEGATIVE); Protein Urine NEGATIVE (NEG/TRACE); Urobilinogen Urine 0.2 EU/dL (0.2-1.0); pH Urine 6.5 (5.0-9.0)
== END 2023-06-01 07:57 | disposition home or self-care (01) ==
PROVIDERS: PCP Nurse Practitioner Family; Visit Provider Nurse Practitioner Family
DX: R31.9 Hematuria, unspecified (principal); D64.9 Anemia, unspecified; R73.09 Other abnormal glucose; E78.5 Hyperlipidemia, unspecified
CPT/HCPCS: 81003; 87086

== ENCOUNTER 2023-06-13 11:41 | Outpatient (OUT) | payer BC, OTHER, SELFPAY ==
--- NOTE | 2023-06-13 11:47 | XR_ITS ---
The [address] [address] Patient Name: SABRINA MARIN MRN: [id number] date: 1980 Sex: F Assigned Patient Location: RAD Current Patient Location: [facility] Accession/Order Number: [id number] Exam Date: 06/13/2023 11:50 Report Date: 06/13/2023 12:44 At the request of: VIVEK MCALLISTER Procedure: XR abdomen 1V EXAMINATION: XR abdomen 1V HISTORY: Microscopic Hematuria R31.29 COMPARISON: No relevant comparison available. FINDINGS: KIDNEY/URETER - RIGHT: No visible renal or ureteral calcifications. KIDNEY/URETER - LEFT: No visible renal or ureteral calcifications. PELVIS: No visible ureteral stones. BOWEL: No abnormal dilation or deviation. BONES: No acute abnormality. OTHER: Negative. No abnormal gaseous collections. XR/XR abdomen 1V IMPRESSION: 1. No appreciable urinary tract stones. 2. Normal bowel gas pattern. Electronically authenticated by: CAROL FRIAS Date: 06/13/2023 12:44
== END 2023-06-13 11:42 | disposition home or self-care (01) ==
LOC: RAD 11:41
PROVIDERS: PCP Nurse Practitioner Family; Visit Provider Nurse Practitioner Family
DX: R31.29 Other microscopic hematuria (principal)
CPT/HCPCS: 74018

== ENCOUNTER 2023-08-03 11:45 | Outpatient (OUT) | payer BC, OTHER, SELFPAY ==
[2023-08-03 13:43] LABS: Bilirubin Urine NEGATIVE (NEGATIVE); Blood Urine TRACE-I (NEGATIVE); Clarity Urine CLEAR (CLEAR); Color Urine YELLOW (YELLOW); Glucose Urine UA NEGATIVE (NEGATIVE); Ketones Urine NEGATIVE (NEGATIVE); Leukocyte Esterase Urine NEGATIVE (NEGATIVE); Nitrite Urine NEGATIVE (NEGATIVE); Protein Urine NEGATIVE (NEG/TRACE); Urobilinogen Urine 0.2 EU/dL (0.2-1.0)
[2023-08-03 13:44] LABS: Urine Microscopic Indicated YES
[2023-08-03 14:14] LABS: Bacteria Urine MODERATE #/HPF (NONE SEEN); Cast Seen? NONE SEEN #/LPF (NONE SEEN); Crystals Seen? None Seen #/HPF (None Seen); Mucus Urine TRACE (NONE SEEN); Squamous Epithelial Cell Urine FEW #/LPF (NONE/RARE); Urine Culture Indicated YES
== END 2023-08-03 11:46 | disposition home or self-care (01) ==
LOC: LAB 11:46
PROVIDERS: PCP Nurse Practitioner Family; Visit Provider Nurse Practitioner Family
DX: R31.9 Hematuria, unspecified (principal)
CPT/HCPCS: 81001; 87086

== ENCOUNTER 2024-06-20 09:33 | Outpatient (OUT) | payer OTHER, SELFPAY ==
[2024-06-20 10:07] LABS: Alanine Aminotransferase 36 U/L (14-59); Albumin Globulin Ratio 1.1; Albumin Level 3.7 g/dL (3.4-5.0); Alkaline Phosphatase 42 U/L (46-116); Anion Gap 12.8; Aspartate Amino Transferase 16 U/L (15-37); BUN Creatinine Ratio 9.8; Bilirubin Total 0.4 mg/dL (0.2-1.0); Calcium 9.1 mg/dL (8.5-10.1); Carbon Dioxide 25.5 mmol/L (21.0-32.0); Chloride 105 mmol/L (98-107); Chol HDL Ratio 4.5; Cholesterol 165 mg/dL (<=200); Estimated GFR (African America >60 (>=60); Estimated GFR (Non-African Ame >60 (>=60); Globulin 3.4 g/dL; Glucose 85 mg/dL (74-106); HDL Cholesterol 37 mg/dL (40-60); Potassium 4.3 mmol/L (3.5-5.1); Sodium 139 mmol/L (136-145); Total Protein 7.1 g/dL (6.4-8.2); Triglycerides 120 mg/dL (<=150)
== END 2024-06-20 09:34 | disposition home or self-care (01) ==
LOC: LAB 09:33
PROVIDERS: PCP Nurse Practitioner Family; Visit Provider Nurse Practitioner Family
DX: Z00.00 Encounter for general adult medical examination without abnormal findings (principal)
CPT/HCPCS: 36415; 80053; 80061

== ENCOUNTER 2024-06-23 16:56 | Outpatient (OUT) | payer OTHER, SELFPAY ==
--- NOTE | 2024-06-23 16:59 | MM_ITS ---
Patient Name: SABRINA MARIN MR#: [id number] : 1980 Exam Date: 06/23/2024 Ordering Doctor: Debra Fitch NP RADIOLOGY REPORT PROCEDURE: MM TOMOSYNTHESIS SCREENING BI COMPARISON: MM TOMOSYNTHESIS SCREENING BI, 04/18/2023. MG MAMM DX 3D RT CAD, 02/05/2022. MG MAMM SCREEN 3D MARY CAD, 06/21/2021. INDICATIONS: Screening for malignant neoplasm Calculator Name NCI Breast Cancer Risk Assessment Tool 5 Year Breast Cancer Risk Not Reported. Lifetime Breast Cancer Risk Not Reported. Personal Breast Cancer No Personal Ovarian Cancer No Treatments None Family Cancers None LOCATION: [facility] BREAST COMPOSITION: The breasts are heterogeneously dense,which may obscure small masses. FINDINGS: DIAGNOSTIC CATEGORY 1--NEGATIVE. NO CHANGE FROM COMPARISON ASSESSMENT. RIGHT BREAST: No significant suspicious finding. No significant change has occurred. LEFT BREAST: No significant suspicious finding. No significant change has occurred. RECOMMENDATIONS: ROUTINE MAMMOGRAM AND CLINICAL EVALUATION IN 12 MONTHS. PLEASE NOTE: A NORMAL MAMMOGRAM DOES NOT EXCLUDE THE POSSIBILITY OF BREAST CANCER. A CLINICALLY SUSPICIOUS PALPABLE LUMP SHOULD BE BIOPSIED. Dictated by: Igor Blount M.D. on 06/26/2024 at 09:04 Approved by: Igor Blount M.D. on 06/26/2024 at 09:08
== END 2024-06-23 16:57 | disposition home or self-care (01) ==
LOC: MAMMO 16:56
PROVIDERS: PCP Nurse Practitioner Family; Visit Provider Nurse Practitioner Family
DX: Z12.31 Encounter for screening mammogram for malignant neoplasm of breast (principal)
CPT/HCPCS: 77063; 77067

== ENCOUNTER 2024-09-05 11:00 | Outpatient (OUT) | payer OTHER, SELFPAY ==
--- OUTSIDE RECORDS SUMMARY | 2024-09-05 11:03 | XMS_ITS | CCD ---
Author Organization [facility] CliniSyne Care Team Providers Care [employer] Officer Name Role Phone Alyssa Blackburn Unavailable Unavailable Pending Provider Unavailable Unavailable Pending Provider Unavailable Unavailable Unavailable Unavailable Pending, Provider Primary Care Unavailable Ms. Leti Carrillo Attending Unavailable ERIKA MCALLISTER Admitting Unavailable ERIKA MCALLISTER Attending Unavailable ERIKA MCALLISTER Primary Care Unavailable ERIKA MCALLISTER Consulting Unavailable ERIKA MCALLISTER Admitting Unavailable ERIKA MCALLISTER Attending Unavailable DR IGOR BLOUNT Consulting Unavailable ERIKA MCALLISTER Consulting Unavailable ERIKA MCALLISTER Admitting Unavailable ERIKA MCALLISTER Attending Unavailable ERIKA MCALLISTER Consulting Unavailable Erika Michelle Unavailable Unavailable Primary Care Provider UnavailELISEO Barnhart Attending Unavailable ELISEO GODWIN Attending Unavailable Medications Current Medications Medication Drug Class(es) Dates Sig (Normalized) Sig (Original) [id number] actuat albuterol 0.09 mg/actuat metered dose inhaler (1 source) beta2-Adrenergic Agonist Start: 03-01-2023 take 2 puff(s) by inhalation four times daily as needed Albuterol Sulfate HFA 108 (90 Base) MCG/ACT 2 puffs Inhalation 4 times a day prn February, Active b complex 0.4 mg tablet (1 source) take 1 tablet by mouth once daily b complex 0.4 mg tablet Take 1 tablet by mouth once daily. 0 Active cetirizine hydrochloride 10 mg oral tablet (1 source) Histamine-1 Receptor Antagonist take 1 tablet by mouth once daily ZyrTEC Allergy 10 MG 1 tablet Orally Once a day Active fluticasone propionate 0.05 mg/actuat metered dose nasal spray (1 source) Corticosteroid Start: 03-01-2023 take 2 spray(s) nasal route once daily Fluticasone Propionate 50 MCG/ACT 2 sprays Nasally Once a day for 14 day(s) February, Active ibuprofen 800 mg oral tablet (5 sources) Nonsteroidal Anti-inflammatory Drug Start: 2018 ibuprofen 800 mg tablet Ibuprofen 800 MG Oral Tablet Refills: 0 Start : 02-Nov-2018 Active 0 2018 Active Start: 2018 Ibuprofen 800 MG Oral Tablet Quantity: 0 Refills: 0 Ordered: 02-Nov-2018 DO Start : 02-Nov-2018 Active multivitamin tablet (1 source) take 1 tablet by mouth once daily multivitamin tablet Take 1 tablet by mouth once daily. 0 Active norethindrone acetate 5 mg oral tablet (7 sources) Start: 06-14-2020 take 2 tablets by mouth once daily norethindrone (Aygestin) 5 mg tablet Take 2 tablets (10 mg) by mouth once daily. 0 06/14/2020 Active Norethindrone No t-Taking phentermine hydrochloride 37.5 mg oral tablet (1 source) Sympathomimetic Amine Anorectic Start: 08-06-2023 take 1 tablet by mouth once daily before mealtime phentermine (Adipex-P) 37.5 mg tablet Take 1 tablet (37.5 mg) by mouth once daily in the morning. Take before meals. 0 08/06/2023 Active predniSONE 20 mg oral tablet (1 source) Start: 03-01-2023 take 1 tablet by mouth every twelve hours predniSONE 20 MG 1 tablet Orally bid for 5 day(s) February, Active rimegepant 75 mg disintegrating oral tablet (4 sources) Start: 02-13-2022 take 1 tablet by mouth every twenty-four hours as needed rimegepant (Nurtec ODT) 75 mg tablet,disintegr ating Take 1 tablet (75 mg) by mouth once daily as needed (TO TREAT MIGRAINE). 0 02/13/2022 Active rizatriptan 10 mg oral tablet (1 source) Serotonin-1b and Serotonin-1d Receptor Agonist Rizatriptan Benzoate 10 MG Oral for 4 Days Active simvastatin 40 mg oral tablet (6 sources) HMG-CoA Reductase Inhibitor Start: 08-08-2023 take 1 tablet by mouth once daily simvastatin (Zocor) 40 mg tablet Take 1 tablet (40 mg) by mouth once daily. 0 08/08/2023 Active Start: 06-14-2021 simvastatin (Z ocor) 20 mg tablet Simvastatin 20 MG Oral Tablet Refills: 0 Start : 14-Jun-2021 Active 0 06/14/2021 Active Start: 06-14-2021 Simvastatin 20 MG Oral Tablet Quantity: 0 Refills: 0 Ordered: 14-Jun-2021 DO Start : 14-Jun-2021 Active 24 hr venlafaxine 37.5 mg extended release oral capsule (4 sources) Serotonin and Norepinephrine Reuptake Inhibitor Start: 02-14-2022 take 1 capsule by mouth every twenty-four hours venlafaxine XR (Effexor-XR) 37.5 mg 24 hr capsule Venlafaxine HCl ER 37.5 MG Oral Capsule Extended Release 24 Hour Quantity: 30 Refills: 0 Start : 14-Feb-2022 Active 0 02/14/2022 Active take 1 capsule by mouth once so ly Venlafaxine HCl ER 37.5 MG TAKE 1 CAPSULE BY MOUTH ONCE A DAY Oral for 30 Days Active Completed/Discontinued Medications Medication Drug Class(es) Dates Sig (Normalized) Sig (Original) dextromethorphan hydrobromide 15 mg / guaiFENesin 400 mg / pseudoephedrine hydrochloride 60 mg oral tablet (1 source) alpha-Adrenergic Agonist, Uncompetitive Y-rqjaoi-L-aspartate Receptor Antagonist, Sigma-1 Agonist Start: 10-20-2019 Capmist DM 60-15-400 MG 1/2 to 1 tablet Orally every 6-8 hours as needed for 8 days Sep, Not-Taking Ketorolac (1 source) Nonsteroidal Anti-inflammatory Drug, Cyclooxygenase Inhibitor Start: 09-21-2019 Toradol per 15 mg Sep, 30 mg oseltamivir 75 mg oral capsule (1 source) Neuraminidase Inhibitor Start: 10-20-2019 take 1 capsule by mouth every twelve hours Tamiflu 75 MG 1 capsule Orally Twice a day for 5 day(s) Sep, Not-Taking Triamcinolone (1 source) Corticosteroid Start: 09-21-2019 Kenalog -40 mg Sep, 40 mg varenicline (1 source) Partial Cholinergic Nicotinic Agonist Chantix Not-Taking Problems Active Problems Problem Classification Problem Date Documented Date Episodic/Chronic Abdominal pain (5 sources) Lower abdominal pain; Translations: [Abdominal pain, other specified site] Onset: 08-16-2023 08-16-2023 Episodic Endometriosis (7 sources) Endometriosis (clinical); Translations: [Endometriosis, site unspecified] Onset: 07-12-2022 08-16-2023 Chronic Genitourinary symptoms and ill-defined conditions (3 sources) Blood in urine; Translations: [Hematuria, unspecified] Onset: 08-19-2023 08-19-2023 Episodic Other connective tissue disease (5 sources) Pelvic floor dysfunction; Translations: [Other specified disorders of female genital organs] Onset: 08-16-2023 08-16-2023 Episodic Other upper respiratory infections (2 sources) Acute pharyngitis, unspecified; Translations: [Acute upper respiratory infection, unspecified] Episodic Residual codes; unclassified (4 sources) Past history of procedure; Translations: [Counseling on substance use and abuse] Episodic Past or Other Problems Problem Classification Problem Date Documented Da te Episodic/Chronic Other screening for suspected conditions (not mental disorders or infectious disease) (4 sources) Other abnormal and inconclusive findings on diagnostic imaging of breast; Translations: [OTH ABN INCONCL FIND DX IMAG BREAST] Onset: 02-05-2022 Episodic NEGATED: Highlighted row has not occurred!Residual codes; unclassified (3 sources) Disease Episodic Results Test Name Value Interpretation Reference Range Facility Non-obstetrician gynecologist cytology studyon Non-gynecological cytology method study Pathology report.total SEE COMMENT Non-gynecologic Cytology Case: [id number] Authorizing Provider: Eliseo Bailey MD MPH Collected: 08/19/2023 1445 Ordering Location: [facility] Received: 08/21/2023 1820 Pathologist: Tyler Cuadra DO Specimen: URINE VOIDED Path report.final diagnosis SEE COMMENT A. Urine voided: -- Few clusters of urothelial cells lacking significant cytologic atypia; origin from a non-neoplastic process is favored. Laboratory comment SEE COMMENT Slide(s) initially screened by SUSAN Patterson at [facility] [id number] [facility] [id number] The gross and/or microscopic findings were reviewed in conjunction with pathology residents, Rochelle Rush MD and Namita Saucedo MD. By the signature on this report, the individual or group listed as making the Final Interpretation/Diagn osis certifies that they have reviewed this case. Path report.relevant Hx urine Path report.gross observation SEE COMMENT A. URINE VOIDED. Received 85 ml yellow clear fluid without particles in sterile cup . Laboratory comment SEE COMMENT O3Rsafae Only (No Block) A1-1Pap Stain NGYN ThinPrep [facility] Quick Strepon 03-01-2023 S. pyogenes Org specific cx Ql (Throat) Negative [employer] Other Quick Strep [facility] [facility] Other MMR IMMUNITYon 10-09-2022 Mumps Abs, IgG 152.0 AU/mL Normal Immune >10.9 [facility] Comment on above: Result Comment: Nega tive <9.0 Equivocal 9.0 - 10.9 Positive >10.9 A positive result generally indicates past exposure to Mumps virus or previous vaccination. Performed By: #### M MRIMMU #### [facility] [address] [place] [address] Dr. Susie Espinal Rubella Antibodies, IgG 6.23 index Normal Immune >0.99 [facility] Comment on above: Result Comment: Non- immune <0.90 Equivocal 0.90 - 0.99 Immune >0.99 Performed By: #### M MRIMMU #### [facility] [address] [place] [address] Dr. Susie Espinal Rubeola Ab, IgG >300.0 Normal Immune >16.4 [facility] Comment on above: Result Comment: Nega tive <13.5 Equivocal 13.5 - 16.4 Positive >16.4 Presence of antibodies to Rubeola is presumptive evidence of immunity except when acute infection is suspected. Performed By: #### MRIMMU #### [facility] [address] [place] [address] Dr. Susie Espinal VARICELLA IGG ABon 2 Varicella Zoster IgG 844 index Normal Immune >165 [facility] Comment on above: Result Comment: Nega tive <135 Equivocal 135 - 165 Positive >165 A positive result generally indicates exposure to the pathogen or administration of specific immunoglobulins, but it is not indication of active infection or stage of disease. Performed By: #### V ARCEL #### [facility] [address] [address] [address] Susie Espinal DRUG SCREEN RAPID (URINE)on 10-08-2022 AMP Negative Normal NEGATIVE [facility] Comment on above: Performed By: #### D RUGRPD #### [facility] [address] [place] [address] Dr. Susie Espinal BAR Negative Normal NEGATIVE [facility] Comment on above: Performed By: #### D RUGRPD #### [facility] [address] [address] [address] Susie Espinal BUP Negative Normal NEGATIVE [facility] Comment on above: Performed By: #### D RUGRPD #### [facility] [address] [place] [address] Dr. Susie Espinal BZO Negative Normal NEGATIVE [facility] Comment on above: Performed By: #### D RUGRPD #### [facility] [address] [place] [address] Dr. Susie Espinal CHRIS Negative Normal NEGATIVE [facility] Comment on above: Performed By: #### D RUGRPD #### [facility] [address] [place] [address] Dr. Susie Espinal CUT-OFFS SEE BELOW Normal [facility] Comment on above: Result Comment: AMP (Amphetamine): 500ng/mL, BAR (Barbituates): 200 ng/mL, BZO (Benzodiazepines): 150 ng/mL, BUP (Buprenorphine): 10 ng/mL, CHRIS (Cocaine): 150 ng/mL, mAMP (Methamphetamine): 500 ng/mL, MTD (Methadone): 200 ng/mL, OPI (Opiates): 100 ng/mL, OXY (Oxycodone): 100 ng/mL, PCP (Phencyclidine): 25 ng/mL, PPX (Propoxyphene): 300 ng/mL, THC (Cannabinoids): 50 ng/mL, TCA (Trycyclic Antidepressants): 300 ng/mL Performed By: #### D RUGRPD #### [facility] [address] [place] [address] Dr. Susie Espinal DRUG CUT HEADER DRUG CLASS TEST SYSTEM CUT-OFF CONCENTRATIONS ARE FOLLOWS: Normal [facility] Comment on above: Performed By: #### D RUGRPD #### [facility] [address] [place] [address] Dr. Susie Espinal mAMP Negative Normal NEGATIVE [facility] Comment on above: Performed By: #### D RUGRPD #### [facility] [address] [place] [address] Dr. Susie Espinal MTD Negative Normal NEGATIVE [facility] Comment on above: Performed By: #### D RUGRPD #### [facility] [address] [place] [address] Dr. Susie Espinal OPI Negative Normal NEGATIVE [facility] Comment on above: Performed By: #### D RUGRPD #### [facility] [address] [place] [address] Dr. Susie Espinal OXY Negative Normal NEGATIVE [facility] Comment on above: Performed By: #### D RUGRPD #### [facility] [address] [place] [address] Dr. Susie Espinal PCP Negative Normal NEGATIVE [facility] Comment on above: Performed By: #### D RUGRPD #### [facility] [address] [place] [address] Dr. Susie Espinal PPX Negative Normal NEGATIVE [facility] Comment on above: Performed By: #### D RUGRPD #### [facility] [address] [place] [address] Dr. Susie Espinal TCA Negative Normal NEGATIVE [facility] Comment on above: Performed By: #### D RUGRPD #### [facility] [address] [place] [address] Dr. Susie Espinal THC Negative Normal NEGATIVE [facility] Comment on above: Performed By: #### D RUGRPD #### [facility] [address] [place] [address] Dr. Susie Espinal WHOLESALE MANAGER - Office Visiton 06-22 WHOLESALE MANAGER - Office Visit Diagnoses/Problems Assessed Encounter for gynecological examination with abnormal finding (V72.31) (Z01.411) Endometriosis (617.9) (N80.9) Orders Renew: Norethindrone Acetate 5 MG Oral Tablet; TAKE 2 TABLET Daily Provider Impressions Assessment/Plan: Well woman exam 1. Health Maintenance: Pap HPV no longer needed Mammogram up to date Nutrition, exercise and routine health maintenance exams reviewed Calcium/Vitamin D supplementation discussed 2. Contraception: NA 3. STI screening: declined 4. Endometriosis: renew 7.5 mg Norethindrone Follow up in one year or sooner as needed. Chief Complaint Annual exam Refill - norethindrone Mamm 2021 - WN (had screening and diagnostic) per patient report at [place] Pap 2018 Neg/HPV- SHELLI/BS 2019 Buffet Waiter/Waitress declined. Mary Brarera RN Adult Risk ScreeningThere are no spiritual/cultural practices/values/nee ds that are important to know Initial Fall Risk Screening: SABRINA has not fallen in the last 6 months. Pain Scale: On a scale of 0 to 10, the patient rates the pain at 0. Living Will. Living Will: No living will on file. Healthcare POA: No healthcare proxy on file. Tobacco Screening: SABRINA does not use tobacco. Domestic Violence Screen: Does not feel threatened or abused physically, emotionally or sexually. Do you feel UNSAFE? The patient feels safe in the home. Depression/Suicide Screening: During the past 2 weeks, the patient has not felt down, depressed or hopeless. During the past 2 weeks, the patient has not felt little interest or pleasure in doing things. She does not have a risk of suicide. She has not had thoughts of harming others. Single alcohol screening question: Patient Declined/Screening not indicated. Single substance abuse screening question: Patient Declined/Screening not indicated. Nutrition Screening: In the past month, there was not a day when I or anyone in my family went hungry because there was not enough food. Patient Education: The patient denies that they or the person with them has problems with hearing, speaking, seeing, moving around or learning The patient is comfortable filling out medical forms. Food Insecurity: 1. Within the past 12 months, you worried that your food would run out before you got money to buy more: No 2. Within the past 12 months, the food you bought just didn't last and you didn't have money to get more: No History of Present Illness Sabrina is a 41 year old who presents today for her annual gynecologic exam without complaints. Taking 7.5 mg Norethindrone. Very happy. Had recall for mammogram but was benign. Has it done out by [facility]. History of abnormal pap: remote. No hx of MEGHNA 2 or grater Last mammogram: up to date hx: 2 CD Sexually active: yes, 1 male partner Time with current partner: Number of partners in the last 12 months:1 Concerns with intercourse: No History of STIs: Patient concern for STI: Family hx of Breast, Ovarian, Uterine or colon cancer: No Exercise: walks Diet: could be better Calcium/Vitamin D: multi Past medical, surgical, family and social histories reviewed and updated as needed. Studying [employer]. 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 Eyes: no eye pain, no vision problems and no dryness of the eyes. ENT: no hearing loss, no nosebleeds, no sinus congestion, no mouth sores and no sore throat. Cardiovascular: no chest pain, no palpitations and no orthopnea. Respiratory: no shortness of breath, no cough and no wheezing. Gastrointestinal: no abdominal pain, no constipation, no nausea, no diarrhea, no vomiting and no melena. Genitourinary: no dysuria, no urinary incontinence, no vaginal dryness, no vaginal itching, no dyspareunia, no pelvic pain, no dysmenorrhea, no sexual problems, no change in urinary frequency, no vaginal discharge, no unexplained vaginal bleeding, no lesion/sore and no vulvar/vaginal pain. Musculoskeletal: no back pain, no joint swelling, no leg edema and no myalgias. Integumentary: no rashes, no skin lesions, no nipple discharge, no breast pain, no breast lump, no acne and no itching. Neurological: no headache, no numbness, no dizziness, no confusion and no memory loss. Psychiatric: no sleep disturbances, no anxiety and no depression. She denies feeling down, depressed, or hopeless over the past two weeks. She denies feeling little interest or pleasure in doing things over the past two weeks. Endocrine: no hot flashes, no loss of hair, no hirsutism, no muscle weakness and no deepening of the voice. Hematologic/Lymphati c: no swollen glands, no tendency for easy bleeding and no tendency for easy bruising. All other systems have been reviewed and are negative for complaint. Active Problems Problems Encounter for gynecological examination with abnormal finding (V72.31) (Z01.411 (more content not included)... Normal [employer] Tobacco Screening.on 022 Adult depression screening assessment No MG-OBGYN-Ri sman 320 Work Phone: Fall risk assessment a) No falls within the last year [id number] 320 Work Phone: Last menstrual period start date hyst NZ-MFOJC-[id number] n 320 Work Phone: Tobacco use status CPHS b) No TC-[id number] 320 Work Phone: INSULINon 02-19-2022 Insulin 11.3 uIU/mL Normal 2.6-24.9 [facility] Comment on above: Performed By: #### I NSULIN ####[facility] [id number] [address]Dr[address] Susie Espinal CBC AUTO DIFFon 02-17-2022 BASO # 0.1 103/ul Normal 0.0-0.1 [facility] Comment on above: Performed By: #### C BC #### [facility] [address] [address] [address] Susie Espinal Basophils/100 WBC (Bld) 0.8 % Normal 0.2-2.0 [facility] Comment on above: Performed By: #### C BC #### [facility] [address] [address] [address] Susie Espinal EO # 0.2 103/ul Normal 0.0-0.7 [facility] Comment on above: Performed By: #### C BC #### [facility] [address] [address] [address] Susie Espinal Eosinophils/100 WBC (Bld) 2.9 % Normal 0.9-7.0 [facility] Comment on above: Performed By: #### C BC #### [facility] [address] [place] [address] Dr. Susie Espinal Erythrocyte distribution width (RBC) [Ratio] 12.4 % Normal 11.0-15.0 [facility] Comment on above: Performed By: #### C BC #### [facility] [address] [place] [address] Dr. Susie Espinal Hematocrit (Bld) [Volume fraction] 43.6 % Normal 36.0-48.0 [facility] Comment on above: Performed By: #### C BC #### [facility] [address] [place] [address] Dr. Susie Espinal Hemoglobin (Bld) [Mass/Vol] 14.2 g/dL Normal 12.0-16.0 [facility] Comment on above: Performed By: #### C BC #### [facility] [address] [place] [address] Dr. Susie Espinal IG # 0.02 10e3/ul Normal 0.00-0.03 [facility] Comment on above: Performed By: #### C BC #### [facility] [address] [place] [address] Dr. Susie Espinal IG % 0.3 % Normal 0.0-0.5 [facility] Comment on above: Performed By: #### C BC #### [facility] [address] [place] [address] Dr. Susie Espinal LYMPH # 2.8 103/ul Normal 1.2-3.8 [facility] Comment on above: Performed By: #### C BC #### [facility] [address] [place] [address] Dr. Susie Espinal Lymphocytes/100 WBC (Bld) 37.1 % Normal 20.5-60.0 [facility] Comment on above: Performed By: #### C BC #### [facility] [address] [place] [address] Dr. Susie Espinal MANUAL DIFF REQ NO Normal [facility] Comment on above: Performed By: #### C BC #### [facility] [address] [place] [address] Dr. Susie Espinal MCH (RBC) [Entitic mass] 30.5 pg Normal 26.7-34.0 [facility] Comment on above: Performed By: #### C BC #### [facility] [address] [place] [address] Dr. Susie Espinal MCHC (RBC) [Mass/Vol] 32.6 g/dL Normal 29.9-35.2 [facility] Comment on above: Performed By: #### C BC #### [facility] [address] [place] [address] Dr. Susie Espinal MCV (RBC) [Entitic vol] 93.6 fL Normal 81.0-99.0 [facility] Comment on above: Performed By: #### C BC #### [facility] [address] [place] [address] Dr. Susie Espinal MONO # 0.5 103/ul Normal 0.3-0.8 [facility] Comment on above: Performed By: #### C BC #### [facility] [address] [place] [address] Dr. Susie Espinal Monocytes/100 WBC (Bld) 6.2 % Normal 1.7-12.0 [facility] Comment on above: Performed By: #### C BC #### [facility] [address] [place] [address] Dr. Susie Espinal NEUT # 3.9 103/ul Normal 1.4-6.5 [facility] Comment on above: Performed By: #### C BC #### [facility] [address] [place] [address] Dr. Susie Espinal Neutrophils/100 WBC (Bld) 52.7 % Normal 43.0-75.0 [facility] Comment on above: Performed By: #### C BC #### [facility] [address] [place] [address] Dr. Susie Espinal Platelet mean volume (Bld) [Entitic vol] 9.1 fL Critically low 9.5-13.5 [facility] Comment on above: Performed By: #### C BC #### [facility] [address] [place] [address] Dr. Susie Espinal PLT 303 103/ul Normal 150-450 [facility] Comment on above: Performed By: #### C BC #### [facility] [address] [place] [address] Dr. Susie Espinal RBC 4.66 106/ul Normal 4.20-5.40 [facility] Comment on above: Performed By: #### C BC #### [facility] [address] [place] [address] Dr. Susie Espinal WBC 7.5 103/ul Normal 4.0-11.0 [facility] Comment on above: Performed By: #### C BC #### [facility] [address] [place] [address] Dr. Susie Espinal FREE T4on 02-17-2022 Free T4 [Mass/Vol] 0.93 ng/dL Normal 0.76-1.46 [facility] Comment on above: Performed By: #### F T4, IRON #### [facility] [facility] [address] [place] [address] Dr. Susie Espinal FREE THYROXINE INDEX T7on FTI 2.63 Normal [facility] Comment on above: Performed By: #### T SH, T7, LIPID, CMP #### [facility] [address] [place] [address] Dr. Susie Espinal T3U 35.0 % Normal 23.5-40.5 [facility] Comment on above: Performed By: #### T SH, T7, LIPID, CMP #### [facility] [address] [place] [address] Dr. Susie Espinal T4 [Mass/Vol] 7.50 ug/dL Normal 4.80-13.90 [facility] Comment on above: Performed By: #### T SH, T7, LIPID, CMP #### [facility] [address] [place] [address] Dr. Susie Espinal GLYCOHEMOGLOBIN A1Con 2021 ADA RECOMMENDATION SEE BELOW Normal [facility] Comment on above: Result Comment: ADA RECOMMENDED LIMIT 4.0 - 6.0 ADA THERAPEUTIC TARGET < 7.0 ACTION SUGGESTED > 7.0 Performed By: #### A 1C ####[facility] [address] [place], [place] [address]Ku. Susie Espinal Glucose [Mass/Vol] 103 mg/dL Normal [facility] Comment on above: Performed By: #### A 1C ####[facility] [address] [place], [place] [address]Rw. Susie Espinal HbA1c (Bld) [Mass fraction] 5.2 % Normal 4.5-6.2 [facility] Comment on above: Performed By: #### A 1C ####[facility] [address] [place] [id number] Espinal IRONon 02-17-2022 Iron [Mass/Vol] 116.0 ug/dL Normal 50.0-170.0 [facility] Comment on above: Performed By: #### F T4, IRON #### [facility] [address] [place], [place] [address] Dr. Susie Espinal LIPID PROFILEon 02-17-2022 CHOL-HDL RATIO NORM SEE BELOW Normal [facility] Comment on above: Result Comment: 3.3 - 4.4 LOW RISK 4.4 - 7.1 AVERAGE RISK 7.1 - 11.0 MODERATE RISK >11.0 HIGH RISK Performed By: #### T SH, T7, LIPID, CMP ####[facility] [address] [place] [id number]. Susie Espinal Cholesterol [Mass/Vol] 176 mg/dL Normal <=200 [facility] Comment on above: Performed By: #### T SH, T7, LIPID, CMP ####[facility] [address] [place], [place] [address]Rt. Susie Espinal Cholesterol in HDL [Mass/Vol] 45 mg/dL Normal 40-60 [facility] Comment on above: Performed By: #### T SH, T7, LIPID, CMP ####[facility] [address] [place], [place] [address]Kj. Susie Espinal Cholesterol in LDL [Mass/Vol] 116.8 mg/dL Normal [facility] Comment on above: Performed By: #### T SH, T7, LIPID, CMP ####[facility] [address] [place], [place] [address]Ds. Susie Espinal Cholesterol.total/Ch olesterol in HDL [Mass ratio] 3.9 {ratio} Normal [facility] Comment on above: Performed By: #### T SH, T7, LIPID, CMP ####[facility] [address] [place] [id number]. Susie Espinal HDL NORMAL > or = 60 mg/dl - LOW CARDIOVASCULAR RISK <40 mg/dl - HIGH CARDIOVASCULAR RISK Normal [facility] Comment on above: Performed By: #### T SH, T7, LIPID, CMP ####[facility] [address] [place] [address]Dr. Susie Espinal LDL CALC NORMAL SEE BELOW Normal [facility] Comment on above: Result Comment: <100 mg/dl OPTIMAL 100 - 129 mg/dl NEAR OR ABOVE OPTIMAL 130 - 159 mg/dl BORDERLINE HIGH 160 - 189 mg/dl HIGH >190 mg/dl VERY HIGH Performed By: #### T SH, T7, LIPID, CMP ####[facility] [address] [place] [id number] Espinal Triglyceride [Mass/Vol] 71 mg/dL Normal <=150 [facility] Comment on above: Performed By: #### T SH, T7, LIPID, CMP ####[facility] [address] [place] [id number] Espinal VLDL CALC 14.2 mg/dL Normal [facility] Comment on above: Performed By: #### T SH, T7, LIPID, CMP ####[facility] [address] [place] [id number] Espinal PROF 14(COMP METB)on 022 Albumin [Mass/Vol] 4.2 g/dL Normal 3.4-5.0 [facility] Comment on above: Performed By: #### T SH, T7, LIPID, CMP #### [facility] [address] [place], [place] [address] Dr. Susie Espinal Albumin/Globulin [Mass ratio] 1.2 {ratio} Normal [facility] Comment on above: Performed By: #### T SH, T7, LIPID, CMP #### [facility] [address] [place] [address] [address] Susie Espinal ALP [Catalytic activity/Vol] 38 U/L Critically low 46-116 [facility] Comment on above: Performed By: #### T SH, T7, LIPID, CMP #### [facility] [address] [place] [address] [address] Susie Espinal ALT [Catalytic activity/Vol] 33 U/L Normal 14-59 [facility] Comment on above: Performed By: #### T SH, T7, LIPID, CMP #### [facility] [address] [place] [address] Dr. Susie Espinal Anion gap [Moles/Vol] 13.5 mmol/L Normal [facility] Comment on above: Performed By: #### T SH, T7, LIPID, CMP #### [facility] [address] [place] [address] Dr. Susie Espinal AST [Catalytic activity/Vol] 16 U/L Normal 15-37 [facility] Comment on above: Performed By: #### T SH, T7, LIPID, CMP #### [facility] [address] [place] [address] Dr. Susie Espinal Bilirubin [Mass/Vol] 0.4 mg/dL Normal 0.2-1.0 [facility] Comment on above: Performed By: #### T SH, T7, LIPID, CMP #### [facility] [address] [place] [address] Dr. Susie Espinal Calcium [Mass/Vol] 8.7 mg/dL Normal 8.5-10.1 [facility] Comment on above: Performed By: #### T SH, T7, LIPID, CMP #### [facility] [address] [place] [address] Dr. Susie Espinal Chloride [Moles/Vol] 102 mmol/L Normal 98-107 [facility] Comment on above: Performed By: #### T SH, T7, LIPID, CMP #### [facility] [address] [place] [address] Dr. Susie Espinal CO2 [Moles/Vol] 26.0 mmol/L Normal 21.0-32.0 [facility] Comment on above: Performed By: #### T SH, T7, LIPID, CMP #### [facility] [address] [place] [address] [address] Susie Espinal Creatinine [Mass/Vol] 0.82 mg/dL Normal 0.55-1.02 [facility] Comment on above: Performed By: #### T SH, T7, LIPID, CMP #### [facility] [address] [place] [address] [address] Susie Espinal EGFR-AF PORTUGUESE >60 Normal >=60 [facility] Comment on above: Performed By: #### T SH, T7, LIPID, CMP #### [facility] [address] [place] [address] [address] Susie Espinal EGFR-NON AF PORTUGUESE >60 Normal >=60 [facility] Comment on above: Performed By: #### T SH, T7, LIPID, CMP #### [facility] [address] [place] [address] [address] Susie Espinal Globulin (S) [Mass/Vol] 3.5 g/dL Normal [facility] Comment on above: Performed By: #### T SH, T7, LIPID, CMP #### [facility] [address] [place] [address] [address] Susie Espinal Glucose [Mass/Vol] 88 mg/dL Normal 74-106 [facility] Comment on above: Performed By: #### T SH, T7, LIPID, CMP #### [facility] [address] [place] [address] [address] Susie Espinal Potassium [Moles/Vol] 4.5 mmol/L Normal 3.5-5.1 [facility] Comment on above: Performed By: #### T SH, T7, LIPID, CMP #### [facility] [address] [place] [address] [address] Susie Espinal Protein [Mass/Vol] 7.7 g/dL Normal 6.1-8.2 [facility] Comment on above: Performed By: #### T SH, T7, LIPID, CMP #### [facility] [address] [place] [address] [address] Susie Espinal Sodium [Moles/Vol] 137 mmol/L Normal 136-145 [facility] Comment on above: Performed By: #### T SH, T7, LIPID, CMP #### [facility] [address] [place] [address] Dr. Susie Espinal Urea nitrogen [Mass/Vol] 10.0 mg/dL Normal 7.0-18.0 [facility] Comment on above: Performed By: #### T SH, T7, LIPID, CMP #### [facility] [address] [place] [address] Dr. Susie Espinal Urea nitrogen/Creatinine [Mass ratio] 12.2 mg/mg Normal [facility] Comment on above: Performed By: #### T SH, T7, LIPID, CMP #### [facility] [address] [place] [address] Dr. Susie Espinal TSHon 02-17-2022 TSH 1.345 uIU/mL Normal 0.470-4.680 [facility] Comment on above: Performed By: #### T SH, T7, LIPID, CMP #### [facility] [address] [place] [address] Dr. Susie Espinal TSH RANGE SEE BELOW Normal [facility] Comment on above: Result Comment: <0.3 4 UIU/ml HYPERTHYROID 0.34-5.60 UIU/ml EUTHYROID >5.60 UIU/ml HYPOTHYROID Performed By: #### T SH, T7, LIPID, CMP #### [facility] [address] [place] [address] Dr. Susie Espinal MG MAMM DX 3D RT CADon 02-05 MG MAMM DX 3D RT CAD Patient: SABRINA CAMACHO Exam Date: 02/05/2022 : 1980 Gender:F Ordering : ERIKA MCALLISTER [facility] Admission #: [id number] Family : Order #: [id number] CLICK HERE TO VIEW EXAM RADIOLOGY REPORT PROCEDURE: MAMMOGRAM DIAGNOSTIC 3D RIGHT CAD COMPARISON: MG MAMM SCREEN 3D MARY CAD, 06/21/2021, ultrasound breast right July 03, 2021 INDICATIONS: Mammography abnormal Calculator Name NCI Breast Cancer Risk Assessment Tool 5 Year Breast Cancer Risk Not Reported. Lifetime Breast Cancer Risk Not Reported. Personal Breast Cancer No Personal Ovarian Cancer No Treatments None Family Cancers None LOCATION: [facility] BREAST COMPOSITION: Heterogeneously dense,which may obscure small masses. FINDINGS: DIAGNOSTIC CATEGORY 2--BENIGN FINDING: RIGHT BREAST: No significant suspicious finding. Clearing of previously seen asymmetry. Annual screening mammography recommended. RECOMMENDATIONS: ROUTINE MAMMOGRAM AND CLINICAL EVALUATION IN 12 MONTHS. PLEASE NOTE: A NORMAL MAMMOGRAM DOES NOT EXCLUDE THE POSSIBILITY OF BREAST CANCER. A CLINICALLY SUSPICIOUS PALPABLE LUMP SHOULD BE BIOPSIED. Dictated by: Igor Blount M.D. on 02/05/2022 at 14:32 Approved by: Igor Blount M.D. on 02/05/2022 at 14:36 Normal [facility] Falls Risk Screeningon 06-14 Fall risk assessment a) No falls within the last year CE-GZILQ-Vsrwru [address] Work Phone: Tobacco use status [facility] b) No VZ-ZSLKE-Iajtbk 320 Work Phone: Nonvisit Note - PTon 019 Nonvisit Note - PT conflicting appointments. KK [facility] Coding Summary.on 02-13-2019 Coding Summary. CODING DATE: 02/13/2019 FINAL [facility] STATUS: PAYOR: Medicaid EAPG DESCRIPTION 0271 PHYSICAL THERAPY 0270 OCCUPATIONAL THERAPY ADMIT DX: REASON FOR VISIT DX: R27.9 Unspecified lack of coordination FINAL DX: PRINCIPAL: R27.9 Unspecified lack of coordination SECONDARY: M99.05 Segmental and somatic dysfunction of pelvic region PYMT PROC EAPG STAT DESCRIPTION DOCTOR NAME DATE NOTE: The code number assigned matches the documented diagnosis and / or procedure in the patient's chart. However, the narrative phrase printed from the coding software may appear abbreviated, or result in slightly different terminology. Coded By: Deysi Figueroa CphT Date Saved: 02/13/2019 11:10 am [facility] Vital Signs Date Time Vital Sign Value Performing Clinician Facility 08-19-2023 14:19-0400 Body mass index (BMI) [Ratio] 37.91 kg/m2 Eliseo Bailey MD MPH Work Phone: [facility] 08-19-2023 14:19-0400 Body weight 97.07 kg Eliseo Bailey MD MPH Work Phone: [facility] 08-19-2023 14:19-0400 Diastolic blood pressure 86 mm[Hg] Eliseo Bailey MD MPH Work Phone: [facility] 08-19-2023 14:19-0400 Heart rate 103 /min Eliseo Bailey MD MPH Work Phone: [facility] 08-19-2023 14:19-0400 Systolic blood pressure 126 mm[Hg] Eliseo Bailey MD MPH Work Phone: [facility] 03-01-2023 12:40-0400 Body height 160.02 cm Erika Bensonmond Other [employer] Other 03-01-2023 12:40-0400 Body mass index (BMI) [Ratio] 36.66 kg/m2 Erika Bensonmond Other [employer] Other 03-01-2023 12:40-0400 Body temperature 98 [degF] Erika Bensonmond Other [employer] Other 03-01-2023 12:40-0400 Body weight 93.9 kg Erika Bensonmond Other [employer] Other 03-01-2023 12:40-0400 Respiratory rate 18 /min Erika Viviana Other [employer] Other 03-01-2023 12:40-0400 SaO2% (BldA) [Mass fraction] 96 % Erika Viviana Other [employer] Other 07-12-2022 14:18-0400 Body height 160.02 cm Leti Carrillo APRN-EMBEDDED SOFTWARE ARCHITECT Work Phone: RT-HOYKA-Mdcrbs 320 Work Phone: 07-12-2022 14:18-0400 Body mass index (BMI) [Ratio] 37.55 kg/m2 Leti Carrillo APRN-EMBEDDED SOFTWARE ARCHITECT Work Phone: WW-OPOVU-Bfpmfw 320 Work Phone: 07-12-2022 14:18-0400 Body surface area Derived from formula 1.98 m2 Leti Carrillo APRN-EMBEDDED SOFTWARE ARCHITECT Work Phone: CK-YWBJY-Vkogod 320 Work Phone: 07-12-2022 14:18-0400 Body weight 96.16 kg Leti Carrillo APRN-EMBEDDED SOFTWARE ARCHITECT Work Phone: PO-DDAFO-Xmiucu 320 Work Phone: 07-12-2022 14:18-0400 Diastolic blood pressure 80 mm[Hg] Leti Carrillo APRN-EMBEDDED SOFTWARE ARCHITECT Work Phone: VK-ENVSM-Mqotqp 320 Work Phone: 07-12-2022 14:18-0400 Heart rate 99 /min Leti Carrillo APRN-EMBEDDED SOFTWARE ARCHITECT Work Phone: GS-SLKDP-Uiepue 320 Work Phone: 07-12-2022 14:18-0400 Respiratory rate 17 /min Leti Carrillo MANAGER PROGRAMS-EMBED[employer]ED SOFTWARE ARCHITECT Work Phone: CS-TWNLE-Akryzp 320 Work Phone: 07-12-2022 14:18-0400 Systolic blood pressure 117 mm[Hg] Leti Carrillo APRN-EMBEDDED SOFTWARE ARCHITECT Work Phone: IB-MZHBN-Erhkxb 320 Work Phone: 07-12-2022 14:18-0400 0 1 Leti Carrillo MANAGER [employer]AMS-EMBEDDED SOFTWARE ARCHITECT Work Phone: TS-HZDHX-Zxxvyx 320 Work Phone: Comment on above: [employer] 07-12-2022 14:18-0400 2 1 Leti Carrillo MANAGER PRO[employer]AMS-[employer]EDDED SOFTWARE ARCHITECT Work Phone: JS-LRJNU-Ijkoer 320 Work Phone: Comment on above: GRAV PARA 06-14-2021 11:37-0400 Body height 160.02 cm Leti Carrillo MANAGER PRO[employer]AMS-EMBEDDED SOFTWARE ARCHITECT Work Phone: WN-USCOQ-Enynvt 320 Work Phone: 06-14-2021 11:37-0400 Body mass index (BMI) [Ratio] 34.54 kg/m2 Leti Carrillo MANAGER [employer]BEDDED SOFTWARE ARCHITECT Work Phone: NM-CRZBK-Njydoj 320 Work Phone: 06-14-2021 11:37-0400 Body surface area Derived from formula 1.91 m2 Leti Carrillo MANAGER [employer]AMS-EMBEDDED SOFTWARE ARCHITECT Work Phone: JT-XRJNT-Nhuopt 320 Work Phone: 06-14-2021 11:37-0400 Body weight 88.45 kg Leti Carrillo MANAGER [employer]ED SOFTWARE ARCHITECT Work Phone: XY-BROES-Hyetcp 320 Work Phone: 06-14-2021 11:37-0400 Diastolic blood pressure 78 mm[Hg] Leti Sanchezy MANAGER [employer]-EM[employer]EDDED SOFTWARE ARCHITECT Work Phone: BK-ZWNPU-Mzzuop 320 Work Phone: 06-14-2021 11:37-0400 Systolic blood pressure 110 mm[Hg] Leti Carrillo MANAGER PRO[employer]AMS-EMBEDDED SOFTWARE ARCHITECT Work Phone: ES-NJKRR-Yubujk 320 Work Phone: 06-14-2021 11:37-0400 0 1 Leti Carrillo MANAGER PRO[employer]AMS-EMBEDDED SOFTWARE ARCHITECT Work Phone: VH-EFCDH-Ucttyg 320 Work Phone: Comment on above: [employer] 06-14-2020 15:19-0400 BMI (Body Mass Index) 32.77 kg/m2 Alyssa Billow TM-OSUVW-Oodixn 320 Work Phone: 06-14-2020 15:19-0400 Body weight 83.92 kg Alyssa Billow LR-VZQTG-Kunwzv 320 Work Phone: 06-14-2020 15:19-0400 BP Diastolic 77 mm[Hg] Alyssa Billow IW-DEKVC-Giiuno 320 Work Phone: 06-14-2020 15:19-0400 BP Systolic 110 mm[Hg] Alyssa Billow EQ-ZGCBE-Zdtbig 320 Work Phone: 06-14-2020 15:19-0400 BSA (Body Surface Area) 1.87 m2 Alyssa Billow ZC-MLHEV-Iriuxz 320 Work Phone: 06-14-2020 15:19-0400 Height 160.02 cm Alyssa Billow KR-CAVFQ-Sowymr 320 Work Phone: 06-14-2020 15:19-0400 Pulse (Heart Rate) 87 /min Alyssa Billow YI-LBTTW-Folb an 320 Work Phone: 06-14-2020 15:19-0400 2 1 Alyssa Billow SR-XKYMS-Xyqbau 320 Work Phone: Comment on above: Para Encounters Encounter Date Encounter Type Care Provider Facility Start: 09-09-2023 End: 09-09-2023 ambulatory [facility] Start: 08-19-2023 End: 08-20-2023 ambulatory [facility] Start: 08-19-2023 End: 08-19-2023 Office outpatient new 45 minutes Eliseo Bailey MD MPH Work Phone: [facility] Comment on above: Hematuria, unspecifi ed type Start: 06-13-2023 Rx Renewal Leti allen MANAGER [employer]AMS-[employer]ED SOFTWARE ARCHITECT Work Phone: KW-PWFWD-Cmmmqo 320 Work Phone: Start: 03-01-2023 End: 03-01-2023 ambulatory Erika Michelle Other [employer] Other Start: 03-01-2023 Office outpatient ne w 20 minutes Erika Michelle [facility] Start: 10-16-2022 Encounter for genera l adult medical examination without abnormal findings ERIKA MCALLISTER [facility] Start: 10-08-2022 End: 10-09-2022 ambulatory ERIKA MCALLISTER Facility:[facility]1 Start: 10-08-2022 End: 10-09-2022 Encounter for general adult medical examination without abnormal findings ERIKA MCALLISTER Facility:[facility] Start: 07-12-2022 Current tobacco non- user cad cap copd pv dm Leti Kennylynn MANAGER [employer]DED SOFTWARE ARCHITECT Work Phone: RB-QAIXZ-Nrkzyn 320 Work Phone: Start: 07-12-2022 ambulatory Provider Pending Facili ty:[id number] Start: 07-12-2022 Encounter for gynecological examination (general) (routine) with abnormal findings Ms. Leti Carrillo [facility] Start: 02-17-2022 End: 02-18-2022 ambulatory ERIKA MCALLISTER Facility:[facility] Start: 02-05-2022 End: 02-06-2022 ambulatory ERIKA MCALLISTER Facility:[facility] Start: 06-14-2021 Periodic preventive med est patient 40-64yrs Leti Floydana mariaalejandro MANAGER [employer]DED SOFTWARE ARCHITECT Work Phone: RV-BNNHC-Vbhirj 320 Work Phone: Start: 06-14-2020 Patient encounter procedure Alyssa Billow UZ-BCTDF-Emkwab 320 Work Phone: Start: 05-05-2019 Patient encounter procedure Alyssa Billow PX-IEUPZ-Ajzkil 320 Work Phone: Start: 02-05-2019 Patient encounter procedure Alyssa Blackburn JI-NJLDS-Kfyxlk 320 Work Phone: Patient encounter status Leti hidalgo MANAGER [employer]-EM[employer]EDDED SOFTWARE ARCHITECT Work Phone: IZ-XJXUD-Mvxghb 320 Work Phone: Procedures Date Procedure Procedure Detail Performing Clinician Start: 08-19-2023 CYTOLOGY CONSULTATIO N (NON-GYNECOLOGIC) ELISEO ABOU GHAYDA Abdominal hysterectomy Alyssa Blackburn Plan of Treatment Date Care Activity Detail Author Start: 10-23-2032 DTaP/Tdap/Td Vaccine s (2 - Td or Tdap) DTaP/Tdap/Td Vaccines (2 - Td or Tdap) [facility] Start: 2030 Zoster Vaccines (1 o f 2) Zoster Vaccines (1 of 2) [facility] Start: 08-19-2023 End: 08-19-2024 Diagnostic cystoscopy Cystoscopy Procedure Routine Hematuria, unspecified type Expected: 08/19/2023 (Approximate), Expires: 08/19/2024 [facility] Service Area Work Phone: Comment on above: Expected: 08/19/2023 (Approximate), Expires: 08/19/2024 Start: 08-19-2023 End: 08-19-2024 Non-gynecological cytology method study Non-gynecologic cytology Pathology and Cytology Routine Hematuria, unspecified type Expected: 08/19/2023 (Approximate), Expires: 08/19/2024 [facility] Work Phone: Comment on above: Expected: 08/19/2023 (Approximate), Expires: 08/19/2024 Start: 06-21-2023 Influenza vaccination Influenza Vacc ine (#1) [facility] Start: 11-26-2022 COVID-19 Vaccine (4 - Moderna series) COVID-19 Vaccine (4 - Moderna series) [facility] Start: 06-13-2022 Patient encounter procedure ANNUAL, Provider: Leti Carrillo, Status: Pen, Time: 11:30 AM CK-WXJUK-Enjfpk 320 Work Phone: Start: 2020 Screening for malign ant neoplasm of breast Mammogram [facility] Start: 2001 Screening for malign ant neoplasm of cervix [facility] Start: 1998 Diabetes mellitus screening Diabetes Screening [facility] Start: 1998 Hepatitis C screening Hepatitis C Sc reening [facility] Start: 1981 MMR Vaccines (1 of 1 - Standard series) MMR Vaccines (1 of 1 - Standard series) [facility] Start: 1981 Varicella vaccination Varicell a Vaccines (1 of 2 - 2-dose childhood series) [facility] Start: 1980 HIV screening HIV Screening [facility] Start: 1980 Lipid panel Lipid Panel [facility] Start: 1980 Yearly Adult Physical Yearly Adult P hysical [facility] Immunizations Immunization Date Immunization Notes Care Provider Fa cility 10-23-2022 tetanus toxoid, redu saskia diphtheria toxoid, and acellular pertussis vaccine, adsorbed Eliseo Bailey MD MPH Work Phone: [facility] Work Phone: 10-01-2022 Moderna COVID-19 vaccine, bivalent, blue cap/monk label *Check age/dose* Eliseo Bailey MD MPH Work Phone: [facility] Work Phone: 09-06-2022 influenza, injectabl e, quadrivalent, preservative free Eliseo Bailey MD MPH Work Phone: [facility] Work Phone: 09-06-2022 influenza virus vaccine, unspecified formulation Eliseo Bailey MD MPH Work Phone: [facility] Work Phone: 07-21-2021 influenza virus vaccine, unspecified formulation Eliseo Bailey MD MPH Work Phone: [facility] Work Phone: 07-28-2020 influenza, injectabl e, quadrivalent, preservative free Eliseo Bailey MD MPH Work Phone: [facility] Work Phone: 09-11-2019 influenza, intraderm al, quadrivalent, preservative free, injectable Eliseo Bailey MD MPH Work Phone: [facility] Work Phone: 08-05-2018 influenza, injectabl e, quadrivalent, preservative free Eliseo Bailey MD MPH Work Phone: [facility] Work Phone: 11-05-2017 influenza, intraderm al, quadrivalent, preservative free, injectable Eliseo Bailey MD MPH Work Phone: [facility] Work Phone: 11-04-2012 influenza virus vaccine, whole virus Eliseo Bailey MD MPH Work Phone: [facility] Work Phone: 03-04-2012 hepatitis B vaccine, adult dosage Eliseo Bailey MD MPH Work Phone: [facility] Work Phone: 10-09-2011 hepatitis B vaccine, adult dosage Eliseo Bailey MD MPH Work Phone: [facility] Work Phone: 09-04-2011 hepatitis B vaccine, adult dosage Eliseo Bailey MD MPH Work Phone: [facility] Work Phone: 09-04-2011 influenza, seasonal, injectable Eliseo Bailey MD MPH Work Phone: [facility] Work Phone: Payers Date Payer Category Payer Unknown [id number] 2023 Unknown 2023 Medicaid [id number] 1980 Unknown [id number] 1980 Unknown [id number] 1980 Unknown [id number] 1980 Unknown [id number] 1980 Unknown [id number] [id number] 1980 Unknown [id number] 1959 Unknown [id number] Social History Date Type Detail Facility Assertion Tobacco smoking consumption unknown (finding) [employer] 320 Work Phone: Non-smoker Non-smoker [employer] Work Phone: Sex Assigned At [employer] Other Start: 08-19-2023 Tobacco smoking status NHIS Ex-smoker [facility] Work Phone: History of tobacco use Current smoker [facility] Work Phone: History of tobacco use Cigarette Smoker [facility] Work Phone: Start: 08-19-2023 Tobacco use and exposure Smokeless tobacco non-user [facility] Work Phone: Start: 08-19-2023 Alcohol intake Ex-drinker (finding) [facility] Work Phone: Start: 1980 Sex Assigned At Not on file [facility] Work Phone: Start: 08-09-2023 End: 08-19-2023 Exposure to SARS-CoV-2 (event) Not sure [facility] Functional Status Date Assessment Result Facility NEGATED: Highlighted row Functional performance Functional status health issues are not documented Disease HW-CRCUX-Sarwyk 320 Work Phone: Mental Status Date Assessment Result Facility NEGATED: Highlighted row Cognitive function [Interpretation] Cognitive status health issues are not documented Disease BE-DDSBY-Cwjjdw 320 Work Phone: History of Present illness Narrative 08-19-2023 Eliseo Bailey MD MPH - 08/19/2023 2:15 PM EDT Note Date & Type Note Facility 08-19-2023 History of Present illness Narrative Subjective Patient ID: Sabrina Camacho is a 42 y.o. female who presents for Establish Care (Estabish care for hematuria. ). HPI Patient presents to establish care for microscopic hematuria. She was in the ED last month after an infection due to a cat bite. Her blood culture at the ED revealed microscopic hematuria. Her renal imaging at the ED was unremarkable. Patient has a 20 year history of smoking. She quit smoking 2.5 years ago. No family history of bladder or renal cancer to report. Review of Systems All systems were reviewed. Anything negative was noted in the HPI. Objective Physical Exam Constitutional: Appearance: Normal appearance. HENT: Head: Normocephalic and atraumatic. Right Ear: External ear normal. Nose: Nose normal. Mouth/Throat: Pharynx: Oropharynx is clear. Pulmonary: Effort: No respiratory distress. Abdominal: General: Abdomen is flat. Bowel sounds are normal. There is no distension. Palpations: Abdomen is soft. Neurological: Mental Status: She is alert. No past medical history on file. Past Surgical History: Procedure Laterality Date SECTION, LOW TRANSVERSE MASS EXCISION 2008 OTHER SURGICAL HISTORY 02/06/2019 Hysterectomy abdominal Assessment/Plan There are no diagnoses linked to this encounter. - Microscopic hematuria: Her renal imaging was unremarkable as per pt, she will get me the results during next visit. We had a very long and extensive discussion with the patient regarding the pathophysiology, differential diagnosis, risk factor, management, natural history, incidence and diagnostic work-up of the condition. Plan: Urine cytology Cystoscopy Follow up: Scribed for Dr. Eliseo Bailey by Tami Ferrer medical service technician, on 08/19/23 at 3:00 PM documented in this encounter [facility] Work Phone: Evaluation note 03-01-2023 Note Date & Type Note Facility 03-01-2023 Evaluation note Encounter Date Diagnosis Assessment Notes February, Sore throat (ICD-10 - J02.9) February, Viral upper respiratory illness (ICD-10 - J06.9) Viral upper respiratory infection: adult home care material was printed Drink plenty fluids, get plenty of rest. Take the prednisone as prescribed until gone. Use the Flonase inhaler as prescribed until your symptoms improved. Use the albuterol inhaler as prescribed as needed for cough or shortness of breath. Take Robitussin or Delsym as needed for cough. Follow-up with your family physician if no improvement by Saturday [employer] Other Evaluation note Note Date & Type Note Facility Evaluation note Diagnosis Hematuria, unspecified type documented in this encounter [facility] Work Phone: History general Narrative - Reported Note Date & Type Note Facility History general Narrative - Reported Type Medical History bronchitis Medical History high cholesterol Surgical History Surgical History hernia Surgical History Myringotomy 2011 Surgical History hysterectomy Hospitalization History See past surgical hx [employer] Other History of Present illness Narrative Note Date & Type Note Facility History of Present illness Narrative Sabrina is a 40 yo P2 (C/S x 2) presents as a follow up for annual exam and medication refillendometriosis ([place]) Managed by Dr. 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 Kyleigh in [place] [employer] Work Phone: History of Present illness Narrative Note Date & Type Note Facility History of Present illness Narrative Sabrina is a 41 year old who presents today for her annual gynecologic exam without complaints. Taking 7.5 mg Norethindrone. Very happy. Had recall for mammogram but was benign. Has it done out by [facility].History of abnormal pap: remote. No hx of MEGHNA 2 or graterLast mammogram: up to datePregnancy hx: 2 CDSexually active: yes, 1 male partnerTime with current partner:Number of partners in the last 12 months:1Concerns with intercourse: NoHistory of STIs:Patient concern for STI:Family hx of Breast, Ovarian, Uterine or colon cancer: NoExercise: walksDiet: could be betterCalcium/Vitamin D: multiPast medical, surgical, family and social histories reviewed and updated as needed.[employer] 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: Reason for referral (narrative) Consultation (Routine) - Authorized Note Date & Type Note Facility Reason for referral (narrati ve) Specialty Diagnoses / Procedures Referred By Contyfn t Referred To Contact Urology Diagnoses Hematuria, unspecified type Procedures Follow Up In Urology Eliseo Godwin MD MPH [address] [place] [address] Referral ID Status Reason Start Date Expiration Date V isits Requested Visits Authorized [id number] Authorized 08/19/2023 08/18/2024 1 1 * /Urology (Routine) - Pending Review Specialty Diagnoses / Procedures Referred By Renan t Referred To Contact Diagnoses Hematuria, unspecified type Procedures Cystoscopy Eliseo Godwin MD MPH [id number] [id number] Referral ID Status Reason Start Date Expiration Date V isits Requested Visits Authorized [id number] Pending Review 08/19/2023 08/18/2024 1 1 [facility] Work Phone: Summary Purpose Family History No Family History Records Found Mother Name Dates Details No pertinent family history( V49.89, Z78.9) Status:Active Unknown Family Member Name Dates Details No pertinent family history: Mother(V49.89, Z78.9) Status:Active Unknown Family Member Name Dates Details No pertinent family history: Mother(V49.89, Z78.9) Status:Active Unknown Family Member Name Dates Details No pertinent family history: Mother(V49.89, Z78.9) Status:Active Advance Directives No Advanced Directives Records FoundNo Advanced Directives Records FoundNo Advanced Directives Records FoundNo Advanced Directives Records FoundNo Advanced Directives Records Found Chief Complaint patient here today for 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 Mary Barrera RN Additional Source Comments INFORMATION SOURCE (unrecogn ized section and content) DATE CREATED AUTHOR 05/03/2019 Raúl Alvarenga [facility] DATE CREATED AUTHOR AUTHOR'S ORGANIZ ATION 07/23/2022 [facility] DATE CREATED AUTHOR AUTHOR'S ORGANIZ ATION 07/23/2022 [employer] DATE CREATED AUTHOR AUTHOR'S ORGANIZ ATION 10/17/2022 [facility] DATE CREATED AUTHOR AUTHOR'S ORGANIZ ATION 09/11/2023 [facility] REASON FOR VISIT (unrecogniz ed section and content) Reason Comments Establish Care Estabish care for he maturia. FOR RECORDS PERTAINING TO PATIENTS WHO ARE OR HAVE BEEN ENROLLED IN A CHEMICAL DEPENDENCY/SUBSTANCEABUSE PROGRAM, SOME INFORMATION MAY BE OMITTED. This clinical summary was aggregated from multiple sources. Caution should be exercised in using it in the provision of clinical care. This summary normalizes information from multiple sources, and as a consequence, information in this document may materially change the coding, format and clinical context of patient data. In addition, data may be omitted in some cases. CLINICAL DECISIONS SHOULD BE BASED ON THE PRIMARY CLINICAL RECORDS. [facility] [employer] [facility]. provides no warranty or guarantee of the accuracy or completeness of information in this document.
--- NOTE | 2024-09-05 11:06 | US_ITS ---
The [address] [address] Patient Name: SABRINA MARIN MRN: [id number] date: 1980 Sex: F Assigned Patient Location: Current Patient Location: Accession/Order Number: [id number] Exam Date: 09/05/2024 11:07 Report Date: 09/07/2024 05:45 At the request of: BENSON ARMANDO Procedure: US renal bladder EXAMINATION: US renal bladder HISTORY: HEMATURIA COMPARISON: No relevant comparison available. TECHNIQUE: Ultrasound examination was performed of the kidneys and urinary bladder. FINDINGS: RIGHT KIDNEY: No evidence of pelvocaliectasis, mass, or calculi. Normal parenchymal echogenicity. Color Doppler demonstrates blood flow within the kidney. Kidney: 10.2 x 3.9 x 5.7 cm LEFT KIDNEY: No evidence of pelvocaliectasis, mass, or calculi. Normal parenchymal echogenicity. Color Doppler demonstrates blood flow within the kidney. Kidney: 11.1 x 5.6 x 5.8 cm BLADDER: No visible wall thickening, mass, or calculi. Post void residual: 2 mL URETERAL JETS: Visualized bilaterally. US/US renal bladder IMPRESSION: 1. Normal examination. Electronically authenticated by: CAROL FRIAS Date: 09/07/2024 05:45
== END 2024-09-05 11:01 | disposition home or self-care (01) ==
LOC: US 11:00
PROVIDERS: PCP Nurse Practitioner Family; Visit Provider Nurse Practitioner Family
DX: N02.9 Recurrent and persistent hematuria with unspecified morphologic changes (principal)
CPT/HCPCS: 76770

== ENCOUNTER 2025-01-15 07:34 | Outpatient (OUT) | payer OTHER, SELFPAY ==
--- OUTSIDE RECORDS SUMMARY | 2025-01-15 07:38 | XMS_ITS | CCD ---
Author Organization [facility] CliniSymn Care Team Providers Care Patient Care Associate Name Role Phone Alyssa Blackburn Unavailable Unavailable [...] Drug Class(es) Dates Sig (Normalized) Sig (Original) [id number] 200 actuat albuterol 0.09 mg/actuat metered dose [...] oral tablet (1 source) alpha-Adrenergic Agonist, Uncompetitive T-coqmdq-C-aspartate Receptor Antagonist, Sigma-1 Agonist Start: 10-20-2019 Capmist [...] Test Name Value Interpretation Reference Range Facility Non-lockstitch machine operator cytology studyon Non-gynecological cytology method study Pathology report.total SEE COMMENT Non-gynecologic Cytology Case: [id number] Authorizing Provider: Eliseo Bailey MD MPH Collected: 08/19/2023 1445 Ordering Location: [facility] Received: 08/21/2023 1824 Pathologist: Tyler Cuadra DO Specimen: URINE VOIDED Path report.final diagnosis SEE COMMENT A. Urine voided: -- Few clusters of urothelial cells lacking significant cytologic atypia; origin from a non-neoplastic process is favored. Laboratory comment SEE COMMENT Slide(s) initially screened by SUSAN Patterson at [facility] [id number] [facility] [id number] The gross and/or microscopic findings were reviewed [...] sterile cup . Laboratory comment SEE COMMENT F2Agkxxe Only (No Block) A1-1Pap Stain NGYN ThinPrep [facility] Ambulatory Quick Strepon 03-01-2023 S. pyogenes Org specific cx Ql (Throat) Negative [facility] Other Quick Strep [facility] sourceasy Other MMR IMMUNITYon 10-09-2022 Mumps Abs, IgG 152.0 AU/mL Normal Immune >10.9 [facility] Comment on above: Result Comment: Nega tive <9.0 Equivocal 9.0 - 10.9 Positive >10.9 A positive result generally indicates past exposure to Mumps virus or previous vaccination. Performed By: #### M MRIMMU #### [facility] [address] [place] [address] Dr. Susie Espinal Rubella Antibodies, IgG 6.23 index Normal Immune >0.99 [facility] Comment on above: Result Comment: Non- immune <0.90 Equivocal 0.90 - 0.99 Immune >0.99 Performed By: #### M MRIMMU #### [facility] [address] [place] [address] Dr. Susie Espinal Rubeola Ab, IgG >300.0 Normal Immune >16.4 [facility] Comment on above: Result Comment: Nega tive <13.5 Equivocal 13.5 - 16.4 Positive >16.4 Presence of antibodies to Rubeola is presumptive evidence of immunity except when acute infection is suspected. Performed By: #### MRIMMU #### [facility] [address] [place] [address] Dr. Susie Espinal VARICELLA IGG ABon 2 Varicella Zoster IgG 844 index Normal Immune >165 [facility] Comment on above: Result Comment: Nega tive <135 Equivocal 135 - 165 Positive >165 A positive result generally indicates exposure to the pathogen or administration of specific immunoglobulins, but it is not indication of active infection or stage of disease. Performed By: #### V ARCEL #### [facility] [address] [address] [address] Susie Espinal DRUG SCREEN RAPID (URINE)on 10-08-2022 AMP Negative Normal NEGATIVE [facility] Comment on above: Performed By: #### D RUGRPD #### [facility] [address] [place] [address] Dr. Susie Espinal BAR Negative Normal NEGATIVE [facility] Comment on above: Performed By: #### D RUGRPD #### [facility] [address] [address] [address] Susie Espinal BUP Negative Normal NEGATIVE [facility] Comment on above: Performed By: #### D RUGRPD #### [facility] [address] [place] [address] Dr. Susie Espinal BZO Negative Normal NEGATIVE [facility] Comment on above: Performed By: #### D RUGRPD #### [facility] [address] [place] [address] Dr. Susie Espinal CHRIS Negative Normal NEGATIVE [facility] Comment on above: Performed By: #### D RUGRPD #### [facility] [address] [place] [address] Dr. Susie Espinal CUT-OFFS SEE BELOW Normal [facility] Comment on above: Result Comment: AMP (Amphetamine): 500ng/mL, BAR (Barbituates): 200 ng/mL, BZO (Benzodiazepines): 150 ng/mL, BUP (Buprenorphine): 10 ng/mL, CHRIS (Cocaine): 150 ng/mL, mAMP (Methamphetamine): 500 ng/mL, MTD (Methadone): 200 ng/mL, OPI (Opiates): 100 ng/mL, OXY (Oxycodone): 100 ng/mL, PCP (Phencyclidine): 25 ng/mL, PPX (Propoxyphene): 300 ng/mL, THC (Cannabinoids): 50 ng/mL, TCA (Trycyclic Antidepressants): 300 ng/mL Performed By: #### D RUGRPD #### [facility] [address] [place] [address] Dr. Susie Espinal DRUG CUT HEADER DRUG CLASS TEST SYSTEM CUT-OFF CONCENTRATIONS ARE FOLLOWS: Normal [facility] Comment on above: Performed By: #### D RUGRPD #### [facility] [address] [place] [address] Dr. Susie Espinal mAMP Negative Normal NEGATIVE [facility] Comment on above: Performed By: #### D RUGRPD #### [facility] [address] [place] [address] Dr. Susie Espinal MTD Negative Normal NEGATIVE [facility] Comment on above: Performed By: #### D RUGRPD #### [facility] [address] [place] [address] Dr. Susie Espinal OPI Negative Normal NEGATIVE [facility] Comment on above: Performed By: #### D RUGRPD #### [facility] [address] [place] [address] Dr. Susie Espinal OXY Negative Normal NEGATIVE [facility] Comment on above: Performed By: #### D RUGRPD #### [facility] [address] [place] [address] Dr. Susie Espinal PCP Negative Normal NEGATIVE [facility] Comment on above: Performed By: #### D RUGRPD #### [facility] [address] [place] [address] Dr. Susie Espinal PPX Negative Normal NEGATIVE [facility] Comment on above: Performed By: #### D RUGRPD #### [facility] [address] [place] [address] Dr. Susie Espinal TCA Negative Normal NEGATIVE [facility] Comment on above: Performed By: #### D RUGRPD #### [facility] [address] [place] [address] Dr. Susie Espinal THC Negative Normal NEGATIVE [facility] Comment on above: Performed By: #### D RUGRPD #### [facility] [address] [place] [address] Dr. Susie Espinal HAND ROLLER ENGRAVER - Office Visiton 06-22 HAND ROLLER ENGRAVER - Office Visit Diagnoses/Problems Assessed Encounter for [...] screening and diagnostic) per patient report at [place] Pap 2018 Neg/HPV- SHELLI/BS 2019 Vest Finisher declined. Mary Barrera RN Adult Risk ScreeningThere are no spiritual/cultural [...] histories reviewed and updated as needed. Studying [employer]. 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 Susie Espinal CBC AUTO DIFFon 02-17-2022 BASO # 0.1 103/ul Normal 0.0-0.1 [facility] Comment on above: Performed By: #### C BC #### [facility] [address] [address] [address] Susie Espinal Basophils/100 WBC (Bld) 0.8 % Normal 0.2-2.0 [facility] Comment on above: Performed By: #### C BC #### [facility] [address] [address] [address] Susie Espinal EO # 0.2 103/ul Normal 0.0-0.7 [facility] Comment on above: Performed By: #### C BC #### [facility] [address] [address] [address] Susie Espinal Eosinophils/100 WBC (Bld) 2.9 % Normal 0.9-7.0 [facility] Comment on above: Performed By: #### C BC #### [facility] [address] [place] [address] Dr. Susie Espinal Erythrocyte distribution width (RBC) [Ratio] 12.4 % Normal 11.0-15.0 [facility] Comment on above: Performed By: #### C BC #### [facility] [address] [place] [address] Dr. Susie Espinal Hematocrit (Bld) [Volume fraction] 43.6 % Normal 36.0-48.0 [facility] Comment on above: Performed By: #### C BC #### [facility] [address] [place] [address] Dr. Susie Espinal Hemoglobin (Bld) [Mass/Vol] 14.2 g/dL Normal 12.0-16.0 [facility] Comment on above: Performed By: #### C BC #### [facility] [address] [place] [address] Dr. Susie Espinal IG # 0.02 10e3/ul Normal 0.00-0.03 [facility] Comment on above: Performed By: #### C BC #### [facility] [address] [place] [address] Dr. Susie Espinal IG % 0.3 % Normal 0.0-0.5 [facility] Comment on above: Performed By: #### C BC #### [facility] [address] [place] [address] Dr. Susie Espinal LYMPH # 2.8 103/ul Normal 1.2-3.8 [facility] Comment on above: Performed By: #### C BC #### [facility] [address] [place] [address] Dr. Susie Espinal Lymphocytes/100 WBC (Bld) 37.1 % Normal 20.5-60.0 [facility] Comment on above: Performed By: #### C BC #### [facility] [address] [place] [address] Dr. Susie Espinal MANUAL DIFF REQ NO Normal [facility] Comment on above: Performed By: #### C BC #### [facility] [address] [place] [address] Dr. Susie Espinal MCH (RBC) [Entitic mass] 30.5 pg Normal 26.7-34.0 [facility] Comment on above: Performed By: #### C BC #### [facility] [address] [place] [address] Dr. Susie Espinal MCHC (RBC) [Mass/Vol] 32.6 g/dL Normal 29.9-35.2 [facility] Comment on above: Performed By: #### C BC #### [facility] [address] [place] [address] Dr. Susie Espinal MCV (RBC) [Entitic vol] 93.6 fL Normal 81.0-99.0 [facility] Comment on above: Performed By: #### C BC #### [facility] [address] [place] [address] Dr. Susie Espinal MONO # 0.5 103/ul Normal 0.3-0.8 [facility] Comment on above: Performed By: #### C BC #### [facility] [address] [place] [address] Dr. Susie Espinal Monocytes/100 WBC (Bld) 6.2 % Normal 1.7-12.0 [facility] Comment on above: Performed By: #### C BC #### [facility] [address] [place] [address] Dr. Susie Espinal NEUT # 3.9 103/ul Normal 1.4-6.5 [facility] Comment on above: Performed By: #### C BC #### [facility] [address] [place] [address] Dr. Susie Espinal Neutrophils/100 WBC (Bld) 52.7 % Normal 43.0-75.0 [facility] Comment on above: Performed By: #### C BC #### [facility] [address] [place] [address] Dr. Susie Espinal Platelet mean volume (Bld) [Entitic vol] 9.1 fL Critically low 9.5-13.5 [facility] Comment on above: Performed By: #### C BC #### [facility] [address] [place] [address] Dr. Susie Espinal PLT 303 103/ul Normal 150-450 [facility] Comment on above: Performed By: #### C BC #### [facility] [address] [place] [address] Dr. Susie Espinal RBC 4.66 106/ul Normal 4.20-5.40 [facility] Comment on above: Performed By: #### C BC #### [facility] [address] [place] [address] Dr. Susie Espinal WBC 7.5 103/ul Normal 4.0-11.0 [facility] Comment on above: Performed By: #### C BC #### [facility] [address] [place] [address] Dr. Susie Espinal FREE T4on 02-17-2022 Free T4 [Mass/Vol] 0.93 ng/dL Normal 0.76-1.46 [facility] Comment on above: Performed By: #### F T4, IRON #### [facility] [address] [place] [address] Dr. Susie Espinal FREE THYROXINE INDEX T7on FTI 2.63 Normal [facility] Comment on above: Performed By: #### T SH, T7, LIPID, CMP #### [facility] [address] [place] [address] Dr. Susie Espinal T3U 35.0 % Normal 23.5-40.5 [facility] Comment on above: Performed By: #### T SH, T7, LIPID, CMP #### [facility] [address] [place] [address] Dr. Susie Espinal T4 [Mass/Vol] 7.50 ug/dL Normal 4.80-13.90 [facility] Comment on above: Performed By: #### T SH, T7, LIPID, CMP #### [facility] [address] [place] [address] Dr. Susie Espinal GLYCOHEMOGLOBIN A1Con 2021 ADA RECOMMENDATION SEE BELOW Normal [facility] Comment on above: Result Comment: ADA RECOMMENDED LIMIT 4.0 - 6.0 ADA THERAPEUTIC TARGET < 7.0 ACTION SUGGESTED > 7.0 Performed By: #### A 1C ####[facility] [address] [place], [place] [address]Rx. Susie Espinal Glucose [Mass/Vol] 103 mg/dL Normal [facility] Comment on above: Performed By: #### A 1C ####[facility] [address] [place], [place] [address]Un. Susie Espinal HbA1c (Bld) [Mass fraction] 5.2 % Normal 4.5-6.2 [facility] Comment on above: Performed By: #### A 1C ####[facility] [address] [id number] Espinal IRONon 02-17-2022 Iron [Mass/Vol] 116.0 ug/dL Normal 50.0-170.0 [facility] Comment on above: Performed By: #### F T4, IRON #### [facility] [address] [place], [place] [address] Dr. Susie Espinal LIPID PROFILEon 02-17-2022 CHOL-HDL RATIO NORM SEE BELOW Normal [facility] Comment on above: Result Comment: 3.3 - 4.4 LOW RISK 4.4 - 7.1 AVERAGE RISK 7.1 - 11.0 MODERATE RISK >11.0 HIGH RISK Performed By: #### T SH, T7, LIPID, CMP ####[facility] [address] [id number] Susie Espinal Cholesterol [Mass/Vol] 176 mg/dL Normal <=200 [facility] Comment on above: Performed By: #### T SH, T7, LIPID, CMP ####[facility] [address] [place], [place] [address]Zt. Susie Espinal Cholesterol in HDL [Mass/Vol] 45 mg/dL Normal 40-60 [facility] Comment on above: Performed By: #### T SH, T7, LIPID, CMP ####[facility] [address] [place], [place] [address]Vq. Susie Espinal Cholesterol in LDL [Mass/Vol] 116.8 mg/dL Normal [facility] Comment on above: Performed By: #### T SH, T7, LIPID, CMP ####[facility] [address] [place], [place] [address]Ej. Susie Espinal Cholesterol.total/Ch olesterol in HDL [Mass ratio] 3.9 {ratio} Normal [facility] Comment on above: Performed By: #### T SH, T7, LIPID, CMP ####[facility] [address] [id number][address] Susie Espinal HDL NORMAL > or = 60 mg/dl - LOW CARDIOVASCULAR RISK <40 mg/dl - HIGH CARDIOVASCULAR RISK Normal [facility] Comment on above: Performed By: #### T SH, T7, LIPID, CMP ####[facility] [address] [address]Dr. Susie Espinal LDL CALC NORMAL SEE BELOW Normal [facility] Comment on above: Result Comment: <100 mg/dl OPTIMAL 100 - 129 mg/dl NEAR OR ABOVE OPTIMAL 130 - 159 mg/dl BORDERLINE HIGH 160 - 189 mg/dl HIGH >190 mg/dl VERY HIGH Performed By: #### T SH, T7, LIPID, CMP ####[facility] [address] [id number] Espinal Triglyceride [Mass/Vol] 71 mg/dL Normal <=150 [facility] Comment on above: Performed By: #### T SH, T7, LIPID, CMP ####[facility] [address] [id number] Espinal VLDL CALC 14.2 mg/dL Normal [facility] Comment on above: Performed By: #### T SH, T7, LIPID, CMP ####[facility] [address] [id number] Espinal PROF 14(COMP METB)on 022 Albumin [Mass/Vol] 4.2 g/dL Normal 3.4-5.0 [facility] Comment on above: Performed By: #### T SH, T7, LIPID, CMP #### [facility] [address] [place], [place] [address] Dr. Susie Espinal Albumin/Globulin [Mass ratio] 1.2 {ratio} Normal [facility] Comment on above: Performed By: #### T SH, T7, LIPID, CMP #### [facility] [address] [address] [address] Susie Espinal ALP [Catalytic activity/Vol] 38 U/L Critically low 46-116 [facility] Comment on above: Performed By: #### T SH, T7, LIPID, CMP #### [facility] [address] [address] [address] Susie Espinal ALT [Catalytic activity/Vol] 33 U/L Normal 14-59 [facility] Comment on above: Performed By: #### T SH, T7, LIPID, CMP #### [facility] [address] [place] [address] Dr. Susie Espinal Anion gap [Moles/Vol] 13.5 mmol/L Normal [facility] Comment on above: Performed By: #### T SH, T7, LIPID, CMP #### [facility] [address] [place] [address] Dr. Susie Espinal AST [Catalytic activity/Vol] 16 U/L Normal 15-37 [facility] Comment on above: Performed By: #### T SH, T7, LIPID, CMP #### [facility] [address] [place] [address] Dr. Susie Espinal Bilirubin [Mass/Vol] 0.4 mg/dL Normal 0.2-1.0 [facility] Comment on above: Performed By: #### T SH, T7, LIPID, CMP #### [facility] [address] [place] [address] Dr. Susie Espinal Calcium [Mass/Vol] 8.7 mg/dL Normal 8.5-10.1 [facility] Comment on above: Performed By: #### T SH, T7, LIPID, CMP #### [facility] [address] [place] [address] Dr. Susie Espinal Chloride [Moles/Vol] 102 mmol/L Normal 98-107 [facility] Comment on above: Performed By: #### T SH, T7, LIPID, CMP #### [facility] [address] [place] [address] Dr. Susie Espinal CO2 [Moles/Vol] 26.0 mmol/L Normal 21.0-32.0 [facility] Comment on above: Performed By: #### T SH, T7, LIPID, CMP #### [facility] [address] [address] [address] Susie Espinal Creatinine [Mass/Vol] 0.82 mg/dL Normal 0.55-1.02 [facility] Comment on above: Performed By: #### T SH, T7, LIPID, CMP #### [facility] [address] [address] [address] Susie Espinal EGFR-AF CHADIAN >60 Normal >=60 [facility] Comment on above: Performed By: #### T SH, T7, LIPID, CMP #### [facility] [address] [address] [address] Susie Espinal EGFR-NON AF CHADIAN >60 Normal >=60 [facility] Comment on above: Performed By: #### T SH, T7, LIPID, CMP #### [facility] [address] [address] [address] Susie Espinal Globulin (S) [Mass/Vol] 3.5 g/dL Normal [facility] Comment on above: Performed By: #### T SH, T7, LIPID, CMP #### [facility] [address] [address] [address] Susie Espinal Glucose [Mass/Vol] 88 mg/dL Normal 74-106 [facility] Comment on above: Performed By: #### T SH, T7, LIPID, CMP #### [facility] [address] [address] [address] Susie Espinal Potassium [Moles/Vol] 4.5 mmol/L Normal 3.5-5.1 [facility] Comment on above: Performed By: #### T SH, T7, LIPID, CMP #### [facility] [address] [address] [address] Susie Espinal Protein [Mass/Vol] 7.7 g/dL Normal 6.1-8.2 [facility] Comment on above: Performed By: #### T SH, T7, LIPID, CMP #### [facility] [address] [address] [address] Susie Espinal Sodium [Moles/Vol] 137 mmol/L Normal 136-145 [facility] Comment on above: Performed By: #### T SH, T7, LIPID, CMP #### [facility] [address] [place] [address] Dr. Susie Espinal Urea nitrogen [Mass/Vol] 10.0 mg/dL Normal 7.0-18.0 [facility] Comment on above: Performed By: #### T SH, T7, LIPID, CMP #### [facility] [address] [place] [address] Dr. Susie Espinal Urea nitrogen/Creatinine [Mass ratio] 12.2 mg/mg Normal [facility] Comment on above: Performed By: #### T SH, T7, LIPID, CMP #### [facility] [address] [place] [address] Dr. Susie Espinal TSHon 02-17-2022 TSH 1.345 uIU/mL Normal 0.470-4.680 [facility] Comment on above: Performed By: #### T SH, T7, LIPID, CMP #### [facility] [address] [place] [address] Dr. Susie Espinal TSH RANGE SEE BELOW Normal [facility] Comment on above: Result Comment: <0.3 4 UIU/ml HYPERTHYROID 0.34-5.60 UIU/ml EUTHYROID >5.60 UIU/ml HYPOTHYROID Performed By: #### T SH, T7, LIPID, CMP #### [facility] [address] [place] [address] Dr. Susie Espinal MG MAMM DX 3D RT CADon 02-05 MG MAMM DX 3D RT CAD Patient: SABRINA CAMACHO Exam Date: 02/05/2022 : 1980 Gender:F Ordering : ERIKA [facility]ALLISTER [facility] Admission #: [id number] Family : Order #: [id number] CLICK HERE TO VIEW EXAM RADIOLOGY REPORT [...] No Treatments None Family Cancers None LOCATION: [facility] BREAST COMPOSITION: Heterogeneously dense,which may obscure small [...] Blount M.D. on 02/05/2022 at 14:36 Normal [facility] Falls Risk Screeningon 06-14 Fall risk assessment a) No falls within the last year [id number] 320 Work Phone: Tobacco use status [facility] b) No PF-HTXQR-Urlawe 320 Work Phone: Nonvisit Note - PTon 019 Nonvisit Note - PT conflicting appointments. KK [facility] Coding Summary.on 02-13-2019 Coding Summary. CODING DATE: 02/13/2019 FINAL [facility] STATUS: PAYOR: Medicaid EAPG DESCRIPTION 0271 PHYSICAL [...] Figueroa CphT Date Saved: 02/13/2019 11:[address] [facility] Vital Signs Date Time Vital Sign Value Performing Clinician Facility 08-19-2023 14:19-0400 Body mass index (BMI) [Ratio] 37.91 kg/m2 Eliseo Bailey MD MPH Work Phone: [facility] 08-19-2023 14:19-0400 Body weight 97.07 kg Eliseo Bailey MD MPH Work Phone: [facility] 08-19-2023 14:19-0400 Diastolic blood pressure 86 mm[Hg] Eliseo Bailey MD MPH Work Phone: [facility] 08-19-2023 14:19-0400 Heart rate 103 /min Eliseo Bailey MD MPH Work Phone: [facility] 08-19-2023 14:19-0400 Systolic blood pressure 126 mm[Hg] Eliseo Bailey MD MPH Work Phone: [facility] 03-01-2023 12:40-0400 Body height 160.02 cm Erika Bensonmond Other [facility] Other 03-01-2023 12:40-0400 Body mass index (BMI) [Ratio] 36.66 kg/m2 Erika Bensonmond Other [facility] Other 03-01-2023 12:40-0400 Body temperature 98 [degF] Erika Bensonmond Other [facility] Other 03-01-2023 12:40-0400 Body weight 93.9 kg Erika Bensonmond Other [facility] Other 03-01-2023 12:40-0400 Respiratory rate 18 /min Erika Viviana Other [facility] Other 03-01-2023 12:40-0400 SaO2% (BldA) [Mass fraction] 96 % Erika Viviana Other [facility] Other 07-12-2022 14:18-0400 Body height 160.02 cm Leti Carrillo APRN-FILTER OPERATOR Work Phone: OK-JKRDW-Mbszhp 320 Work Phone: 07-12-2022 14:18-0400 Body mass index (BMI) [Ratio] 37.55 kg/m2 Leti Carrillo APRN-FILTER OPERATOR Work Phone: FI-DZXXA-Tysqzk 320 Work Phone: 07-12-2022 14:18-0400 Body surface area Derived from formula 1.98 m2 Leti Carrillo APRN-FILTER OPERATOR Work Phone: VC-AGIKT-Xsvxia 320 Work Phone: 07-12-2022 14:18-0400 Body weight 96.16 kg Leti Carrillo APRN-FILTER OPERATOR Work Phone: PA-PSJNO-Vkfbjs 320 Work Phone: 07-12-2022 14:18-0400 Diastolic blood pressure 80 mm[Hg] Leti Carrillo APRN-FILTER OPERATOR Work Phone: JH-XEUHN-Iozfmn 320 Work Phone: 07-12-2022 14:18-0400 Heart rate 99 /min Leti Carrillo APRN-FILTER OPERATOR Work Phone: OV-SMXSQ-Zztoua 320 Work Phone: 07-12-2022 14:18-0400 Respiratory rate 17 /min Leti Carrillo [employer]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 Work Phone: WP-ZLKXF-Sqzikw 320 Work Phone: 07-12-2022 14:18-0400 Systolic blood pressure 117 mm[Hg] Leti Carrillo APRN-FILTER OPERATOR Work Phone: OB-AXZXU-Nguwoc 320 Work Phone: 07-12-2022 14:18-0400 0 1 Leti Carrillo [employer]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 Work Phone: WK-FHLIQ-Wxvxqq 320 Work Phone: Comment on above: [employer] 07-12-2022 14:18-0400 2 1 Leti Carrillo [employer]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 Work Phone: NF-XFLWV-Vwdlyk 320 Work Phone: Comment on above: GRAV PARA 06-14-2021 11:37-0400 Body height 160.02 cm Leti Carrillo [employer]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 Work Phone: EM-IOJKA-Spslwh 320 Work Phone: 06-14-2021 11:37-0400 Body mass index (BMI) [Ratio] 34.54 kg/m2 Leti Carrillo [employer]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 Work Phone: KG-DAOPH-Hojeuj 320 Work Phone: 06-14-2021 11:37-0400 Body surface area Derived from formula 1.91 m2 Leti Carrillo [employer]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 Work Phone: AA-UASZF-Tqzjrr 320 Work Phone: 06-14-2021 11:37-0400 Body weight 88.45 kg Leti Carrillo [employer]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 Work Phone: UV-HXPEX-Cfozbo 320 Work Phone: 06-14-2021 11:37-0400 Diastolic blood pressure 78 mm[Hg] Leti Sanchezy [employer]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 Work Phone: EI-KLZLR-Exwtdn 320 Work Phone: 06-14-2021 11:37-0400 Systolic blood pressure 110 mm[Hg] Leti Carrillo [employer]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 Work Phone: MS-MQZFC-Mjarol 320 Work Phone: 06-14-2021 11:37-0400 0 1 Leti Carrillo [employer]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 Work Phone: BW-TSCSB-Ifrycm 320 Work Phone: Comment on above: [employer] 06-14-2020 15:19-0400 BMI (Body Mass Index) 32.77 kg/m2 Alyssa Billow FK-FUDUE-Sgiryu 320 Work Phone: 06-14-2020 15:19-0400 Body weight 83.92 kg Alyssa Billow IW-OLHXC-Lijwwc 320 Work Phone: 06-14-2020 15:19-0400 BP Diastolic 77 mm[Hg] Alyssa Billow NG-DEQRE-Espwgy 320 Work Phone: 06-14-2020 15:19-0400 BP Systolic 110 mm[Hg] Alyssa Billow EP-SOQMV-Hhdbuv 320 Work Phone: 06-14-2020 15:19-0400 BSA (Body Surface Area) 1.87 m2 Alyssa Billow TM-ZLXWF-Kdgxmm 320 Work Phone: 06-14-2020 15:19-0400 Height 160.02 cm Alyssa Billow HO-HVCPP-Yvzvki 320 Work Phone: 06-14-2020 15:19-0400 Pulse (Heart Rate) 87 /min Alyssa Billow KO-EHTTU-Nchl an 320 Work Phone: 06-14-2020 15:19-0400 2 1 Alyssa Billow NQ-HEBUA-Vfunuy 320 Work Phone: Comment on above: Para Encounters Encounter Date Encounter Type Care Provider Facility Start: 09-09-2023 End: 09-09-2023 ambulatory [facility] Start: 08-19-2023 End: 08-20-2023 ambulatory [facility] Start: 08-19-2023 End: 08-19-2023 Office outpatient new 45 minutes Eliseo Bailey MD MPH Work Phone: [facility] Comment on above: Hematuria, unspecifi ed type Start: 06-13-2023 Rx Renewal Leti allen [employer]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 Work Phone: AR-NCTQE-Littel 320 Work Phone: Start: 03-01-2023 End: 03-01-2023 ambulatory Erika Michelle Other [facility] Other Start: 03-01-2023 Office outpatient ne w 20 minutes Erika Michelle [facility] Start: 10-16-2022 Encounter for genera l adult medical examination without abnormal findings ERIKA MCALLISTER [facility] Start: 10-08-2022 End: 10-09-2022 ambulatory ERIKA MCALLISTER Facility:[facility] Start: 10-08-2022 End: 10-09-2022 Encounter for general adult medical examination without abnormal findings ERIKA MCALLISTER Facility:[facility] Start: 07-12-2022 Current tobacco non- user cad cap copd pv dm Leti 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 Work Phone: ED-POJWL-Dtllxw 320 Work Phone: Start: 06-14-2020 Patient encounter procedure Alyssa Billow HZ-YZDKQ-Esdpga 320 Work Phone: Start: 05-05-2019 Patient encounter procedure Alyssa Billow KI-HAAPN-Dyxhoc 320 Work Phone: Start: 02-05-2019 Patient encounter procedure Alyssa Blackburn FJ-ECXKX-Mexkbd 320 Work Phone: Patient encounter status Leti hidalgo [employer]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 Work Phone: GJ-MUTFT-Rcyyhu 320 Work Phone: Procedures Date Procedure Procedure Detail Performing Clinician Start: 08-19-2023 CYTOLOGY CONSULTATIO N (NON-GYNECOLOGIC) ELISEO ABOU GHAYDA Abdominal hysterectomy Alyssa Blackburn Plan of Treatment Date Care Activity Detail Author Start: 10-23-2032 DTaP/Tdap/Td Vaccine s (2 - Td or Tdap) DTaP/Tdap/Td Vaccines (2 - Td or Tdap) [facility] Start: 2030 Zoster Vaccines (1 o f 2) Zoster Vaccines (1 of 2) [facility] Start: 08-19-2023 End: 08-19-2024 Diagnostic cystoscopy Cystoscopy Procedure Routine Hematuria, unspecified type Expected: 08/19/2023 (Approximate), Expires: 08/19/2024 [facility] Work Phone: Comment on above: Expected: 08/19/2023 (Approximate), Expires: 08/19/2024 Start: 08-19-2023 End: 08-19-2024 Non-gynecological cytology method study Non-gynecologic cytology Pathology and Cytology Routine Hematuria, unspecified type Expected: 08/19/2023 (Approximate), Expires: 08/19/2024 [facility] Work Phone: Comment on above: Expected: 08/19/2023 (Approximate), Expires: 08/19/2024 Start: 06-21-2023 Influenza vaccination Influenza Vacc ine (#1) [facility] Start: 11-26-2022 COVID-19 Vaccine (4 - Moderna series) COVID-19 Vaccine (4 - Moderna series) [facility] Start: 06-13-2022 Patient encounter procedure ANNUAL, Provider: Leti Carrillo, Status: Pen, Time: 11:30 AM QK-YCKAO-Yddbxv 320 Work Phone: Start: 2020 Screening for malign ant neoplasm of breast Mammogram [facility] Start: 2001 Screening for malign ant neoplasm of cervix [facility] Start: 1998 Diabetes mellitus screening Diabetes Screening [facility] Start: 1998 Hepatitis C screening Hepatitis C Sc reening [facility] Start: 1981 MMR Vaccines (1 of 1 - Standard series) MMR Vaccines (1 of 1 - Standard series) [facility] Start: 1981 Varicella vaccination Varicell a Vaccines (1 of 2 - 2-dose childhood series) [facility] Start: 1980 HIV screening HIV Screening [facility] Start: 1980 Lipid panel Lipid Panel [facility] Start: 1980 Yearly Adult Physical Yearly Adult P hysical [facility] Immunizations Immunization Date Immunization Notes Care Provider Fa cility 10-23-2022 tetanus toxoid, redu saskia diphtheria toxoid, and acellular pertussis vaccine, adsorbed Eliseo Bailey MD MPH Work Phone: [facility] Work Phone: 10-01-2022 Moderna COVID-19 vaccine, bivalent, blue cap/monk label *Check age/dose* Eliseo Bailey MD MPH Work Phone: [facility] Work Phone: 09-06-2022 influenza, injectabl e, quadrivalent, preservative free Eliseo Bailey MD MPH Work Phone: [facility] Work Phone: 09-06-2022 influenza virus vaccine, unspecified formulation Eliseo Bailey MD MPH Work Phone: [facility] Work Phone: 07-21-2021 influenza virus vaccine, unspecified formulation Eliseo Bailey MD MPH Work Phone: [facility] Work Phone: 07-28-2020 influenza, injectabl e, quadrivalent, preservative free Eliseo Bailey MD MPH Work Phone: [facility] Work Phone: 09-11-2019 influenza, intraderm al, quadrivalent, preservative free, injectable Eliseo Bailey MD MPH Work Phone: [facility] Work Phone: 08-05-2018 influenza, injectabl e, quadrivalent, preservative free Eliseo Bailey MD MPH Work Phone: [facility] Work Phone: 11-05-2017 influenza, intraderm al, quadrivalent, preservative free, injectable Eliseo Bailey MD MPH Work Phone: [facility] Work Phone: 11-04-2012 influenza virus vaccine, whole virus Eliseo Bailey MD MPH Work Phone: [facility] Work Phone: 03-04-2012 hepatitis B vaccine, adult dosage Eliseo Bailey MD MPH Work Phone: [facility] Work Phone: 10-09-2011 hepatitis B vaccine, adult dosage Eliseo Bailey MD MPH Work Phone: [facility] Work Phone: 09-04-2011 hepatitis B vaccine, adult dosage Eliseo Bailey MD MPH Work Phone: [facility] Work Phone: 09-04-2011 influenza, seasonal, injectable Eliseo Bailey MD MPH Work Phone: [facility] Work Phone: Payers Date Payer Category Payer Unknown [id number] 2023 Unknown 2023 Medicaid [id number]. [id number] 1980 Unknown [id number] 1980 Unknown [id number] 1980 Unknown [id number] 1980 Unknown [id number] 1980 Unknown [id number] 1980 Unknown [id number] 1959 Unknown [id number] Social History Date Type Detail Facility Assertion Tobacco smoking consumption unknown (finding) [employer] [facility] Work Phone: Non-smoker Non-smoker [facility] Work Phone: Sex Assigned At [facility] Other Start: 08-19-2023 Tobacco smoking status NHIS Ex-smoker [facility] Work Phone: History of tobacco use Current smoker [facility] Work Phone: History of tobacco use Cigarette Smoker [facility] Work Phone: Start: 08-19-2023 Tobacco use and exposure Smokeless tobacco non-user [facility] Work Phone: Start: 08-19-2023 Alcohol intake Ex-drinker (finding) [facility] Work Phone: Start: 1980 Sex Assigned At Not on file [facility] Work Phone: Start: 08-09-2023 End: 08-19-2023 Exposure to SARS-CoV-2 (event) Not sure [facility] Functional Status Date Assessment Result Facility NEGATED: Highlighted row Functional performance Functional status health issues are not documented Disease OR-SSGBE-Xepbyd 320 Work Phone: Mental Status Date Assessment Result Facility NEGATED: Highlighted row Cognitive function [Interpretation] Cognitive status health issues are not documented Disease DT-CYTCP-Xhypbw 320 Work Phone: History of Present illness [...] Dr. 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 repairer, on 08/19/23 at 3:00 PM documented in this encounter [facility] Work Phone: Evaluation note 03-01-2023 Note Date [...] family physician if no improvement by Saturday [facility] Other Evaluation note Note Date & Type Note Facility Evaluation note Diagnosis Hematuria, unspecified type documented in this encounter [facility] Work Phone: History general Narrative - Reported Note Date & Type Note Facility History general Narrative - Reported Type Medical History bronchitis Medical History high cholesterol Surgical History Surgical History hernia Surgical History Myringotomy 2011 Surgical History hysterectomy Hospitalization History See past surgical hx [facility] Other History of Present illness Narrative Note [...] - under tonguehas tried: NSAIDsDr. Kyleigh in [place] [employer] [facility] Work Phone: History of Present illness [...] and social histories reviewed and updated as needed.[employer] 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 [employer] [address] Work Phone: Reason for referral (narrative) Consultation (Routine) - Authorized Note Date & Type Note Facility Reason for referral (narrati ve) Specialty Diagnoses / Procedures Referred By Contyfn t Referred To Contact Urology Diagnoses Hematuria, unspecified type Procedures Follow Up In Urology Eliseo Godwin MD MPH [address] [place] [address] Referral ID Status Reason Start Date Expiration Date V isits Requested Visits Authorized [id number] Authorized 08/19/2023 08/18/2024 1 1 * /Urology (Routine) - Pending Review Specialty Diagnoses / Procedures Referred By Renan t Referred To Contact Diagnoses Hematuria, unspecified type Procedures Cystoscopy Eliseo Godwin MD MPH [id number] [id number] Referral ID Status Reason Start Date Expiration Date V isits Requested Visits Authorized [id number] Pending Review 08/19/2023 08/18/2024 1 1 [facility] Work Phone: Summary Purpose Family History No [...] 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 Mary Barrera RN Additional Source Comments INFORMATION SOURCE (unrecogn ized section and content) DATE CREATED AUTHOR 05/03/2019 Raúl Alvarenga [facility] ical Center DATE CREATED AUTHOR AUTHOR'S ORGANIZ ATION 07/23/2022 [facility] ical Center DATE CREATED AUTHOR AUTHOR'S ORGANIZ ATION 07/23/2022 [employer] DATE CREATED AUTHOR AUTHOR'S ORGANIZ ATION 10/17/2022 [facility] DATE CREATED AUTHOR AUTHOR'S ORGANIZ ATION 09/11/2023 [facility] REASON FOR VISIT (unrecogniz ed [...] BE BASED ON THE PRIMARY CLINICAL RECORDS. [facility] [employer]. provides no warranty or guarantee of the accuracy or completeness of information in this document.
[2025-01-15 08:57] LABS: Estimated Average Glucose 105 mg/dL; Glycohemoglobin A1C 5.3 % (4.5-6.2)
[2025-01-15 09:09] LABS: Alanine Aminotransferase 37 U/L (14-59); Albumin Globulin Ratio 1.1; Albumin Level 3.7 g/dL (3.4-5.0); Alkaline Phosphatase 47 U/L (46-116); Anion Gap 12.5; Aspartate Amino Transferase 21 U/L (15-37); Bilirubin Total 0.5 mg/dL (0.2-1.0); Calcium 9.5 mg/dL (8.5-10.1); Carbon Dioxide 28.6 mmol/L (21.0-32.0); Chloride 105 mmol/L (98-107); Chol HDL Ratio 4.1; Cholesterol 171 mg/dL (<=200); Estimated GFR (African America >60 (>=60 mL/min/1.73m^2); Estimated GFR (Non-African Ame >60 (>=60 mL/min/1.73m^2); Globulin 3.5 g/dL; Glucose 88 mg/dL (74-106); HDL Cholesterol 42 mg/dL (40-60); LDL Cholesterol Calculated 108.8 mg/dL; Potassium 4.1 mmol/L (3.5-5.1); Sodium 142 mmol/L (136-145); Thyroid Stimulating Hormone 1.648 uIU/mL (0.358-3.740); Total Protein 7.2 g/dL (6.4-8.2); Triglycerides 101 mg/dL (<=150); VLDL CHOLESTEROL 20.2 mg/dL
== END 2025-01-15 07:35 | disposition home or self-care (01) ==
LOC: LAB 07:35
PROVIDERS: PCP Nurse Practitioner Family; Visit Provider Nurse Practitioner Family
DX: G43.009 Migraine without aura, not intractable, without status migrainosus (principal); E78.5 Hyperlipidemia, unspecified; E66.01 Morbid (severe) obesity due to excess calories; E66.813 Obesity, class 3
CPT/HCPCS: 36415; 80053; 80061; 83036; 84436; 84443